=== PATIENT | female | born 1980 | race Caucasian/White ===

== ENCOUNTER → 2016-10-22 | Outpatient (CLI) | payer SELFPAY ==
--- NOTE | 2016-10-22 11:07 | USB ---
Reason for exam: additional evaluation requested from abnormal screening. History: Family history of breast cancer in paternal grandmother. Took hormonal contraceptives for 6 years. Indicated problem(s): palpable abnormality in the right breast. Physical Findings: Nurse Summary: bilateral mastecomy with silicone implants. No palpable abnormality noted (nurse ts). US Breast RT Right breast ultrasound includes all four quadrants, the retroareolar region and axilla. Finding demonstrate no cystic or solid lesion seen. Implant is intact. These results were verbally communicated with the patient and result sheet given to the patient on 10/22/16. ASSESSMENT: Negative, BI-RAD 1 RECOMMENDATION: Clinical management of the right breast. Manage patient on a clinical basis.
== END | disposition home or self-care (01) ==
LOC: RADUSWWP 09:07
PROVIDERS: ATTEND Surgery
DX: Z85.3 Personal history of malignant neoplasm of breast (principal)

== ENCOUNTER 2017-06-12 18:50 | Emergency (ER) | payer OTHER ==
[2017-06-12 19:08] VITALS: RESP 18; TEMP 98
[2017-06-12] MEDS ORDERED: diphenhydrAMINE 50 MG/ML 1 ML VIAL IVP STA (19:33)
[2017-06-12] MEDS ORDERED: METOCLOPRAMIDE 5 MG/ML 2 ML VIAL IVP STA (19:33)
[2017-06-12] MEDS ORDERED: SODIUM CHLORIDE 0.9% 1,000 ML IV ONE (19:33)
--- NOTE | 2017-06-12 19:43 | ED ---
General Adult HPI - General Chief complaint: Nausea/Vomiting/Diarrhea Stated complaint: Abdominal pain 17 weeks Time Seen by Provider: 06/12/17 19:17 Source: patient Mode of arrival: ambulatory Limitations: no limitations - History of Present Illness Initial comments: Patient is a 36-year-old female, 18 weeks presents with a chief complaint of nausea vomiting and diarrhea that started earlier today. Patient has had one episode of diarrhea. The patient states that she is not too many times to count. She states that she is trying to drink water but cannot keep it down. She cannot identify any inciting incidences other than eating [employer] '[employer] breakfast this morning. There are no aggravating or alleviating factors. The patient also complains of cramping lower abdominal pain. The patient denies any vaginal discharge or bleeding. 9:10 PM Lab evaluation of this patient is unremarkable. Bedside ultrasound shows a single, mobile intrauterine gestation with a heart rate of 197 bpm. On reevaluation, patient states she is feeling better. She'll be prescribed Reglan for nausea control on an outpatient basis. She is instructed to follow up with primary care and [facility]. She was given exquisite signs and symptoms that should prompt return visit to the emergency department. - Related Data Home Medications Medication Instructions Recorded Confirmed Pnv No.95/Ferrous Fum/Folic AC 1 tab PO HS 06/12/17 06/12/17 [ Multivitamin Tablet] Previous Rx's Medication Instructions Recorded Metoclopramide [Reglan] 10 mg PO TID PRN #20 tab 06/12/17 Allergies Allergy/AdvReac Type Severity Reaction Status Date / Time No Known Allergies Allergy Verified 06/12/17 19:26 Review of Systems ROS Statement: Those systems with pertinent positive or pertinent negative responses have been documented in the HPI. ROS Other: All systems not noted in ROS Statement are negative. Constitutional: Denies: fever Respiratory: Denies: cough, dyspnea Cardiovascular: Denies: chest pain Gastrointestinal: Reports: abdominal pain, nausea, vomiting, diarrhea Genitourinary: Denies: dysuria Musculoskeletal: Denies: back pain Skin: Denies: rash Neurological: Denies: headache Past Medical History Past Medical History: Cancer History of Any Multi-Drug Resistant Organisms: None Reported Additional Past Surgical History / Comment(s): penny mastectomy, D&C Past Psychological History: No Psychological Hx Reported Smoking Status: Light tobacco smoker Past Alcohol Use History: None Reported Past Drug Use History: None Reported General Exam Limitations: no limitations General appearance: alert, in no apparent distress Head exam: Present: atraumatic, normocephalic ENT exam: Present: mucous membranes moist Respiratory exam: Present: normal lung sounds bilaterally Cardiovascular Exam: Present: regular rate, normal rhythm GI/Abdominal exam: Present: soft, tenderness. Absent: distended Rectal exam: Present: deferred Neurological exam: Present: alert, oriented X3 Psychiatric exam: Present: normal affect, normal mood Skin exam: Present: warm, dry, intact Course Vital Signs 06/12/17 19:03 Temperature 98.0 F Pulse Rate 75 Respiratory 18 Rate Blood Pressure 112/52 O2 Sat by Pulse 100 Oximetry Medical Decision Making - Medical Decision Making Patient presents with a chief complaint of nausea vomiting and diarrhea since today. She is 18 weeks . She will be given Reglan, Benadryl, and IV fluids. Basic labs were sent, will perform bedside ultrasound this patient has a formal ultrasound on Saturday with her OB. - Lab Data Result diagrams: 06/12/17 20:08 06/12/17 20:08 Lab Results 06/12/17 06/12/17 Range/Units 20:08 20:08 WBC 17.1 H (3.8-10.6) k/uL RBC 4.02 (3.80-5.40) m/uL Hgb 12.9 (11.4-16.0) gm/dL Hct 38.8 (34.0-46.0) % MCV 96.6 (80.0-100.0) fL MCH 32.1 (25.0-35.0) pg MCHC 33.2 (31.0-37.0) g/dL RDW 14.1 (11.5-15.5) % Plt Count 202 (150-450) k/uL Neutrophils % 93 % Lymphocytes % 3 % Monocytes % 3 % Eosinophils % 1 % Basophils % 0 % Neutrophils # 15.9 H (1.3-7.7) k/uL Lymphocytes # 0.5 L (1.0-4.8) k/uL Monocytes # 0.5 (0-1.0) k/uL Eosinophils # 0.2 (0-0.7) k/uL Basophils # 0.0 (0-0.2) k/uL Sodium 135 L (137-145) mmol/L Potassium 4.2 (3.5-5.1) mmol/L Chloride 106 (98-107) mmol/L Carbon Dioxide 21 L (22-30) mmol/L Anion Gap 8 mmol/L BUN 16 (7-17) mg/dL Creatinine 0.69 (0.52-1.04) mg/dL Est GFR (MDRD) Af Amer >60 (>60 ml/min/1.73 sqM) Est GFR (MDRD) Non-Af >60 (>60 ml/min/1.73 sqM) Glucose 117 H (74-99) mg/dL Calcium 9.1 (8.4-10.2) mg/dL Total Bilirubin 0.3 (0.2-1.3) mg/dL AST 23 (14-36) U/L ALT 38 (9-52) U/L Alkaline Phosphatase 65 (38-126) U/L Total Protein 6.8 (6.3-8.2) g/dL Albumin 3.7 (3.5-5.0) g/dL Lipase 42 (23-300) U/L Disposition Clinical Impression: Nausea and vomiting Disposition: HOME SELF-CARE Condition: Good Instructions: Acute Nausea and Vomiting (ED) Referrals: None,Stated [Primary Care Provider] - 1-2 days Paulina Vick MD [STAFF PHYSICIAN] - 1-2 days
[2017-06-12 20:28] LABS: Basophils % (A) 0 %; CH 32.4; CHCM 33.8; Eosinophils # (A) 0.2 k/uL (0-0.7); Eosinophils % (A) 1 %; HCT 38.8 % (34.0-46.0); HDW 2.53; HGB 12.9 gm/dL (11.4-16.0); Luc # (Auto) 0.06; Luc % (Auto) 0; Lymphocytes # (A) 0.5 k/uL (1.0-4.8); Lymphocytes % (A) 3 %; MCH 32.1 pg (25.0-35.0); MCHC 33.2 g/dL (31.0-37.0); MCV 96.6 fL (80.0-100.0); Mean Platelet Volume 7.1; Monocytes # (A) 0.5 k/uL (0-1.0); Monocytes % (A) 3 %; Neutrophils # (A) 15.9 k/uL (1.3-7.7); Neutrophils % (A) 93 %; RBC 4.02 m/uL (3.80-5.40); RDW 14.1 % (11.5-15.5); WBC 17.1 k/uL (3.8-10.6); WBC (Perox) 17.65
[2017-06-12 20:45] LABS: ALT 38 U/L (9-52); AST 23 U/L (14-36); Alkaline Phosphatase 65 U/L (38-126); Anion Gap 8 mmol/L; Blood Urea Nitrogen 16 mg/dL (7-17); Calcium 9.1 mg/dL (8.4-10.2); Carbon Dioxide 21 mmol/L (22-30); Chloride 106 mmol/L (98-107); Glucose 117 mg/dL (74-99); Non-African American GFR(MDRD) >60 (>60 ml/min/1.73 sqM); Potassium 4.2 mmol/L (3.5-5.1); Sodium 135 mmol/L (137-145); Total Bilirubin 0.3 mg/dL (0.2-1.3); Total Protein 6.8 g/dL (6.3-8.2)
[2017-06-12 21:37] VITALS: BP 123/72; PULSE 92
== END 2017-06-12 21:37 | disposition home or self-care (01) ==
LOC: EC 18:50
DX: O21.9 Vomiting of pregnancy, unspecified (principal); O26.892 Other specified pregnancy related conditions, second trimester; R19.7 Diarrhea, unspecified; R10.30 Lower abdominal pain, unspecified; O99.332 Smoking (tobacco) complicating pregnancy, second trimester; F17.200 Nicotine dependence, unspecified, uncomplicated; Z85.9 Personal history of malignant neoplasm, unspecified; Z79.899 Other long term (current) drug therapy; Z3A.18 18 weeks gestation of pregnancy
CPT/HCPCS: 99284; 96374; 96375; 96361; 36415; 80053; 83690; 85025; 84702; J1200; J2765

== ENCOUNTER 2017-07-14 20:35 | Outpatient (CLI) | payer MEDICARE, OTHER ==
[2017-07-14 21:24] VITALS: BP 120/69; PULSE 76; RESP 16; TEMP 97.7
--- NOTE | 2017-07-14 22:29 | P.MSEPDOC ---
Presenting Problems - Arrival Data Date of Arrival on Unit: 07/14/17 Time of Arrival on Unit: 20:33 Mode of Transport: Ambulatory - Complaint OB-Reason for Admission/Chief Complaint: Vaginal Bleeding Comment: scant spotting x1 Medical History - Information : 3 Para: 1 Term: 1 : 0 Abortions: Spontaneous or Elective: 1 Number of Living Children: 1 - Gestational Age Gestational Age by VANESSA (wks/days): 22 Weeks and 3 Days - History Complications: Smoker Review of Systems - Review of Systems Constitutional: No problems Breast: No problems ENT: No problems Cardiovascular: No problems Respiratory: No problems Gastrointestinal: No problems Genitourinary: No problems Musculoskeletal: No problems Neurological: No problems Skin: No problems Vital Signs - Temperature Temperature: 97.7 F Temperature Source: Temporal Artery Scan - Pulse Right Pulse Rate: 76 Pulse Assessment Method: Automatic Cuff - Respirations Respiratory Rate: 16 - Blood Pressure Right Arm Blood Pressure: 120/69 Blood Pressure Mean: 86 Blood Pressure Source: Automatic Cuff Medical Screen Scoring (Pre) - Cervical Exam Dilation: 0 cm = 0 Membranes: Intact - Uterine Contractions Frequency: N/A Duration: N/A Intensity: N/A - Maternal Vital Signs Maternal Temperature: N/A Signs of Preeclampsia: N/A - Assessment Baseline FHR: 145 - Total Score Total Score (Pre): 0 - Level of Risk Level of Risk: Low (0-5) Physician Notification (Pre) - Physician Notified Physician Notified Date: 07/14/17 Physician Notified Time: 20:49 Physician/Practitioner Notifed:: Dr Murray - Notification Comment Comment: reported on pts c/o spotting x1. reported on intercourse, no abd pain or tenderness, no other complaints or concerns. orders for SSE and vag exam. d/ c home if cervix is closed Disposition - Disposition OB Disposition: Discharge to home Discharge Date: 07/14/17 Discharge Time: 21:10 I agree with the RN Medical Screening Exam: Yes Risk & Benefit of care provided described in d/c instruction: Yes Diagnosis: 21 WEEKS GESTATION OF
== END 2017-07-14 21:10 | disposition home or self-care (01) ==
LOC: FBPOP 20:35
PROVIDERS: ATTEND Obstetrics & Gynecology
DX: O46.92 Antepartum hemorrhage, unspecified, second trimester (principal); O99.332 Smoking (tobacco) complicating pregnancy, second trimester; Z3A.21 21 weeks gestation of pregnancy
CPT/HCPCS: 99213

== ENCOUNTER 2017-11-10 20:39 | Inpatient (IN) | payer OTHER ==
[2017-11-10] MEDS ORDERED: METHYLERGONOVINE 0.2 MG/ML 1 ML AMP IM PRN (21:40)
[2017-11-10] MEDS ORDERED: CARBOPROST TROMETHAMINE 250 MCG/ML 1 ML AMP IM PRN (21:40)
[2017-11-10] MEDS ORDERED: LIDOCAINE 1% (PF) 10 MG/ML (30 ML SDV) SQ PRN (21:40)
[2017-11-10] MEDS ORDERED: TERBUTALINE 1 MG/ML VIAL SQ PRN (21:40)
[2017-11-10] MEDS ORDERED: OXYTOCIN 10 UNIT/ML 1 ML VIAL IM PRN (21:40)
[2017-11-10] MEDS ORDERED: OXYTOCIN 20 UNITS/1000 ML NS 1,000 ML IV SCH (21:45)
[2017-11-10 22:03] VITALS: BMI 25.9
[2017-11-10] MEDS: LACTATED RINGERS 1,000 ML IV SCH ×2 (22:07→22:56)
[2017-11-10 22:12] LABS: Basophils % (A) 0 %; Eosinophils # (A) 0.2 k/uL (0-0.7); Eosinophils % (A) 1 %; HCT 35.8 % (34.0-46.0); HGB 12.6 gm/dL (11.4-16.0); Lymphocytes # (A) 2.6 k/uL (1.0-4.8); Lymphocytes % (A) 20 %; MCH 32.9 pg (25.0-35.0); MCHC 35.2 g/dL (31.0-37.0); MCV 93.4 fL (80.0-100.0); Mean Platelet Volume 7.7; Monocytes # (A) 0.7 k/uL (0-1.0); Monocytes % (A) 6 %; Neutrophils # (A) 9.1 k/uL (1.3-7.7); Neutrophils % (A) 71 %; Platelet Count 224 k/uL (150-450); RBC 3.84 m/uL (3.80-5.40); RDW 13.4 % (11.5-15.5); WBC 12.8 k/uL (3.8-10.6)
[2017-11-10] MEDS ORDERED: fentaNYL (PF) 50 MCG/ML 5 ML AMP ONE (22:50)
[2017-11-10] MEDS ORDERED: BUPIVACAINE (PF) 0.25% 30 ML VIAL ONE (22:50)
[2017-11-10] MEDS ORDERED: SODIUM CHLORIDE 0.9% 100 ML BAG ONE (22:50)
[2017-11-10] MEDS ORDERED: BUPIVACAINE (PF) 0.5% 12.5 ML, fentaNYL (PF) 200 MCG in SODIUM CHLORIDE 0.9% 83.5 ML EPIDURAL ONE (23:13)
--- NOTE | 2017-11-11 01:33 | P.MSEPDOC ---
Presenting Problems - Arrival Data Date of Arrival on Unit: 11/10/17 Time of Arrival on Unit: 20:39 Mode of Transport: Ambulatory - Complaint OB-Reason for Admission/Chief Complaint: Rule Out SROM Comment: Pt complains of SROM at 1830 Medical History - Information : 3 Para: 1 Term: 1 : 0 Abortions: Spontaneous or Elective: 1 Number of Living Children: 1 - Gestational Age Gestational Age by VANESSA (wks/days): 39 Weeks and 3 Days - History Complications: Smoker Review of Systems - Review of Systems Constitutional: No problems Breast: No problems ENT: No problems Cardiovascular: No problems Respiratory: No problems Gastrointestinal: No problems Genitourinary: No problems Musculoskeletal: No problems Neurological: No problems Skin: No problems Vital Signs - Temperature Temperature: 97.9 F Temperature Source: Temporal Artery Scan - Pulse Pulse Oximetery Pulse Rate: 100 Pulse Assessment Method: Automatic Cuff - Respirations Respiratory Rate: 15 Oxygen Delivery Method: Room Air - Blood Pressure Right Arm Blood Pressure: 136/82 Blood Pressure Mean: 100 Blood Pressure Source: Automatic Cuff Medical Screen Scoring (Pre) - Cervical Exam Dilation: 1-3 cm = 1 Effacement: More than 50% = 2 Membranes: Ruptured = 3 - Uterine Contractions Frequency: N/A Duration: N/A Intensity: N/A - Maternal Vital Signs Maternal Temperature: N/A Maternal Blood Pressure: N/A Signs of Preeclampsia: N/A Maternal Respirations: N/A - Pain Assessment Pain Location and Character: Abdomen Pain Scale Used: Numeric (1 - 10) Pain Intensity: 3 Pain Management Goal: 2 Pain Description: *Acute, Cramping Pain Radiation Location: none Pain Frequency: Intermittent Pain Duration: 1 Pain Duration Units: Hours Pain Behavior: None Exhibited Pain Aggravating Factors: Contractions - Maternal Trauma Maternal Trauma: N/A - Assessment Baseline FHR: 135 Heart Rate - NICHD Category: Category I (Normal) = 0 NST: Reactive Position: N/A Station: N/A - Total Score Total Score (Pre): 6 - Level of Risk Level of Risk: Medium (6-9) Physician Notification (Pre) - Physician Notified Physician Notified Date: 11/10/17 Physician Notified Time: 20:49 Physician/Practitioner Notifed:: Dr Murray New Order Received: Yes Medical Screen Scoring (Post) - Cervical Exam Dilation: 1-3 cm = 1 Effacement: More than 50% = 2 Membranes: Ruptured = 3 - Uterine Contractions Frequency: > or = 36 weeks =2 Duration: > 40 seconds = 2 Intensity: N/A - Maternal Vital Signs Maternal Temperature: N/A Maternal Blood Pressure: N/A Signs of Preeclampsia: N/A Maternal Respirations: N/A - Pain Assessment Pain Scale Used: Numeric (1 - 10) Pain Intensity: 3 Pain Management Goal: 2 Pain Description: *Acute Pain Radiation Location: none Pain Frequency: Intermittent Pain Duration: 30 Pain Duration Units: Minutes Pain Behavior: Guarding, Vocalization Pain Aggravating Factors: Contractions - Maternal Trauma Maternal Trauma: N/A - Total Score Total Score (Post): 10 - Post Treatment Level of Risk Post Treatment Level of Risk: High (10+) Physician Notification (Post) - Physician Notified Physician Notified Date: 11/10/17 Physician Notified Time: 21:39 Physician/Practitioner Notified:: Dr. Murray Spoke With: Dr. Murray New Order Received: Yes - Notification Comment Comment: admit pt for labo Disposition - Disposition OB Disposition: Admit, LDRP Suite I agree with the RN Medical Screening Exam: Yes Risk & Benefit of care provided described in d/c instruction: Yes Diagnosis: ENCOUNTER FOR FULL-TERM UNCOMPLICATED DELIVERY
--- NOTE | 2017-11-11 01:38 | P.HPOB ---
History of Present Illness H&P Date: 11/10/17 Chief Complaint: Labor 37 year old presents at 39 weeks 3 days with spontaneous rupture of membranes at 1830. Her cervix was 3 cm dilated, 80% effaced, -2 station. She is garret every 3-5 minutes. heart tones 130-135 with moderate variability and reactive. Review of Systems All systems: negative Constitutional: Denies chills, Denies fever Eyes: denies blurred vision, denies pain Ears, nose, mouth and throat: Denies headache, Denies sore throat Cardiovascular: Denies chest pain, Denies shortness of breath Respiratory: Denies cough Gastrointestinal: Denies abdominal pain, Denies diarrhea, Denies nausea, Denies vomiting Genitourinary: Denies dysuria, Denies hematuria Musculoskeletal: Denies myalgias Integumentary: Denies pruritus, Denies rash Neurological: Denies numbness, Denies weakness Psychiatric: Denies anxiety, Denies depression Endocrine: Denies fatigue, Denies weight change Past Medical History Past Medical History: Cancer (Stage 0 breast cancer with bilateral mastectomy) Additional Past Medical History / Comment(s): Obstetric history: First was a miscarriage with a D&C, second was a vaginal delivery at 39 weeks, this is her third she's had care with Dr. Lucas since 9 weeks gestation. Blood type A-, rubella immune, RPR nonreactive , placed B-, HIV negative, toxoplasmosis negative. GBS negative. History of Any Multi-Drug Resistant Organisms: None Reported Additional Past Surgical History / Comment(s): penny mastectomy, D&C biopsy and scar revisions Past Anesthesia/Blood Transfusion Reactions: No Reported Reaction Past Psychological History: No Psychological Hx Reported Smoking Status: Current every day smoker Past Alcohol Use History: None Reported Past Drug Use History: None Reported - Past Family History Father Family Medical History: Coronary Artery Disease (CAD), Hypertension Medications and Allergies Home Medications Medication Instructions Recorded Confirmed Type Pnv No.95/Ferrous Fum/Folic AC 1 tab PO HS 06/12/17 11/10/17 History [ Multivitamin Tablet] Allergies Allergy/AdvReac Type Severity Reaction Status Date / Time No Known Allergies Allergy Verified 11/10/17 20:42 Exam Osteopathic Statement: *. No significant issues noted on an osteopathic structural exam other than those noted in the History and Physical/Consult. - Vital Signs Vital signs: Vital Signs Temp Pulse Resp BP 11/11/17 01:33 97.9 F 100 15 136/82 11/10/17 20:45 97.9 F 100 15 136/82 Intake and Output 11/10/17 11/10/17 11/11/17 14:59 22:59 06:59 Other: Weight 77.564 kg Heart: Regular rate and rhythm Lungs: Clear to auscultation bilaterally Abdomen: Soft, nontender Extremities: Negative Homans sign Results Result Diagrams: 11/10/17 21:55 Abnormal Lab Results - Last 24 Hours (Table) 11/10/17 Range/Units 21:55 WBC 12.8 H (3.8-10.6) k/uL Neutrophils # 9.1 H (1.3-7.7) k/uL Assessment and Plan (1) Spontaneous rupture of membranes Current Visit: Yes Status: Acute Code(s): [id number] - SNOMED Code(s): 094136715 Plan: 1. Admit to family place 2. Pitocin augmentation 3. Epidural for pain management 4. Anticipate normal vaginal delivery
--- NOTE | 2017-11-11 01:42 | P.PROBDLV ---
Vaginal Delivery Note - . Vaginal Delivery Note: 37-year-old presents at 39 weeks 3 days with spontaneous rupture membranes at 1830. Her cervix is 3 cm dilated, 80% effaced, -2 station. She is garret every 3-5 minutes. heart tones 130-135 with moderate variability and reactive. Pitocin augmentation was started and epidural was given for pain management. Her cervix was completely dilated at 00 50. She pushed, and delivered a viable male over intact perineum under epidural anesthesia at 1:25 AM. Head delivered OA, anterior shoulder delivered gentle downward traction followed by posterior shoulder and rest of body. Nose and mouth bulb suctioned, cord clamped and cut, infant placed mother's abdomen. Apgars 8, 9, weight 6 lbs. 10 oz. Placenta delivered spontaneously, intact with three-vessel cord at 1:28 AM. Vagina, cervix, and perineum were inspected. No lacerations noted. Estimated blood loss 150 mL. Mother and baby in stable condition.
[2017-11-11] MEDS ORDERED: SIMETHICONE 80 MG CHEWABLE PO PRN (07:19)
[2017-11-11] MEDS ORDERED: BENZOCAINE/MENTHOL SPRAY 1 GM/SPRAY AEROSOL TOPICAL PRN (07:19)
[2017-11-11] MEDS ORDERED: diphenhydrAMINE 50 MG/ML 1 ML VIAL IVP PRN ×2 (07:19)
[2017-11-11] MEDS ORDERED: LANOLIN CREAM 5 GM TUBE TOPICAL PRN (07:19)
[2017-11-11] MEDS ORDERED: HYDROCORTISONE 2.5% RECTAL CREAM 30 GM TUBE RECTAL PRN (07:19)
[2017-11-11] MEDS ORDERED: ACETAMINOPHEN TAB 325 MG TAB PO PRN (07:19)
[2017-11-11] MEDS ORDERED: diphenhydrAMINE 50 MG CAP PO PRN (07:19)
[2017-11-11] MEDS ORDERED: diphenhydrAMINE 25 MG CAP PO PRN (07:19)
[2017-11-11] MEDS ORDERED: WITCH HAZEL 1 EACH MED..PAD TOPICAL PRN (07:19)
[2017-11-11] MEDS ORDERED: ZOLPIDEM 5 MG TAB PO PRN (07:19)
[2017-11-11] MEDS: SENNOSIDES-DOCUSATE SODIUM 1 EACH TAB PO SCH ×2 (09:26→21:11)
[2017-11-11] MEDS: IBUPROFEN 600 MG TAB PO PRN (17:23)
[2017-11-11] MEDS ORDERED: DIPH,PERTUS(ACELL)TETVAC-LF 0.5 ML VIAL IM ONE (21:10)
[2017-11-12 04:30] VITALS: BP 103/51; PULSE 70; RESP 16; TEMP 97.7
--- NOTE | 2017-11-12 06:04 | P.PNOBGVD ---
Subjective - Subjective Patient reports: Reports appetite normal, Reports voiding normally, Reports pain well controlled, Reports ambulating normally : doing well Objective - Latest Vital Signs Latest vital signs: Vital Signs Temp Pulse Resp BP 11/12/17 00:00 97.7 F 70 16 103/51 11/11/17 16:00 98.3 F 73 18 123/67 11/11/17 12:00 98.3 F 68 18 118/60 11/11/17 08:00 97.9 F 66 18 107/57 - Exam Lungs: bilateral: normal Chest: Normal S1, Normal S2 Extremities: Present: normal Abdomen: Present: normal appearance, soft Uterus: Present: normal, firm Assessment and Plan Assessment: Post day #1. She is resting without complaints. Vital signs are stable she is afebrile. Uterus is firm nontender and she has normal lochia. Patient wishes to go home. Impression normal course. Plan is to continue routine care and discharge home later today.
--- NOTE | 2017-11-12 06:06 | P.DS ---
Providers Date of admission: 11/10/17 21:22 Expected date of discharge: 11/12/17 Attending physician: Kenney Lucas Primary care physician: Kenney Lucas [facility] Course: Please see dictated H&P and delivery note per Dr. Murray on this patient's admission. Brief summary this pleasant 37-year-old 3 para 1 female 39-3 /7 weeks gestation admitted with spontaneous rupture membranes. Patient was on have a vaginal delivery viable male . Please see dictated delivery note. day 1 patient wishes to go home. Patient's felt be stable for discharge home follow up with me in 6 weeks. Procedures: Normal spontaneous vaginal delivery Patient Condition at Discharge: Good Plan - Discharge Summary New Discharge Prescriptions: New Ibuprofen [Motrin] 600 mg PO Q6HR PRN #40 tab PRN Reason: Mild Pain Or Fever >= 100.5 No Action Pnv No.95/Ferrous Fum/Folic AC [ Multivitamin Tablet] 1 tab PO HS Discharge Medication List Pnv No.95/Ferrous Fum/Folic AC [ Multivitamin Tablet] 1 tab PO HS [History] Ibuprofen [Motrin] 600 mg PO Q6HR PRN #40 tab 11/12/17 [Rx] Follow up Appointment(s)/Referral(s): Kenney Lucas MD [Primary Care Provider] - 12/23/17 8:45 am Patient Instructions/Handouts: Vaginal Delivery (DC) Activity/Diet/Wound Care/Special Instructions: No intercourse or anything per vagina for 6 weeks. Please call if any fever, chills, excessive vaginal bleeding, and/or abdominal pain. Discharge Disposition: HOME SELF-CARE
[2017-11-12] MEDS: IBUPROFEN 600 MG TAB PO PRN (06:33)
== END 2017-11-12 08:15 | disposition home or self-care (01) | DRG 775 ==
LOC: FBPOP 20:39 → 4FBP 21:22
PROVIDERS: ADMIT Obstetrics & Gynecology; ATTEND Obstetrics & Gynecology
PROC: 10E0XZZ Delivery of Products of Conception, External Approach (ICD-10-PCS; principal; 2017-11-11)
PROC: 00HU33Z Insertion of Infusion Device into Spinal Canal, Percutaneous Approach (ICD-10-PCS; 2017-11-11)
PROC: 3E0R3BZ Introduction of Anesthetic Agent into Spinal Canal, Percutaneous Approach (ICD-10-PCS; 2017-11-11)
DX: O99.334 Smoking (tobacco) complicating childbirth (principal); Z37.0 Single live birth; F17.200 Nicotine dependence, unspecified, uncomplicated; Z3A.39 39 weeks gestation of pregnancy; Z85.3 Personal history of malignant neoplasm of breast; Z90.13 Acquired absence of bilateral breasts and nipples; Z82.49 Family history of ischemic heart disease and other diseases of the circulatory system
CPT/HCPCS: 84112; 85025; 86850; 86870; 86880; 86900; 86901; 86902; 88307; 90471; 90715; 99213

== ENCOUNTER 2018-04-06 21:25 | Observation (INO) | payer OTHER ==
[2018-04-06 21:31] VITALS: TEMP 98
[2018-04-06] MEDS ORDERED: SODIUM CHLORIDE 0.9% 1,000 ML IV STA (21:45)
--- NOTE | 2018-04-06 21:56 | ED ---
General Adult HPI - General Source: patient Mode of arrival: wheelchair Limitations: no limitations <Martha Mon - Last Filed: 04/06/18 23:37> <Echo Miramontes - Last Filed: 04/07/18 03:03> - General Chief complaint: Seizure Stated complaint: seizure Time Seen by Provider: 04/06/18 21:38 - History of Present Illness Initial comments: 37 year-old female patient with past medical history significant for breast cancer status post bilateral mastectomy, remission for 5 years, presents to the emergency department today for evaluation after experiencing what her believes to be a seizure. States around 2009 this evening patient started complaining of abdominal pain radiating into her back. States that she then became unconscious stiffened all limbs, turned her head to the left and had mild shaking. reports this lasted approximately 30-40 seconds before she went completely unconscious and still. States that while he was on the phone with EMS she became alert, but was acting confused, was yelling "yes" to his responses to EMS personnel on the phone. States she did have a vomiting episode after the "seizure". Patient did lose bladder control, no loss of bowel control. Patient states that she is still experiencing "central" abdominal pain , she is still having mid back pain that radiates across her back. States that she was feeling fine throughout the day today and was quite busy. She denies any headache, dizziness, blurred vision, or double vision. She denies any nausea , vomiting, constipation, or diarrhea. His any fevers or chills. No history of seizures. Patient denies any recent rash, shortness breath, chest pain, numbness, tingling, dizziness, weakness, hematuria, dysuria, urinary urgency, urinary frequency, headache, visual changes, or any other complaints. (Martha Mon) - Related Data Home Medications Medication Instructions Recorded Confirmed Pnv No.95/Ferrous Fum/Folic AC 1 tab PO HS 06/12/17 11/10/17 [ Multivitamin Tablet] Previous Rx's Medication Instructions Recorded Ibuprofen [Motrin] 600 mg PO Q6HR PRN #40 tab 11/12/17 Allergies Allergy/AdvReac Type Severity Reaction Status Date / Time No Known Allergies Allergy Verified 04/06/18 21:31 Review of Systems ROS Other: All systems not noted in ROS Statement are negative. <Martha Mon M - Last Filed: 04/06/18 23:37> ROS Other: All systems not noted in ROS Statement are negative. <Echo Miramontes - Last Filed: 04/07/18 03:03> ROS Statement: Those systems with pertinent positive or pertinent negative responses have been documented in the HPI. Past Medical History Past Medical History: Cancer Additional Past Medical History / Comment(s): Obstetric history: First was a miscarriage with a D&C, second was a vaginal delivery at 39 weeks, this is her third she's had care with Dr. Lucas since 9 weeks gestation. Blood type A-, rubella immune, RPR nonreactive , placed B-, HIV negative, toxoplasmosis negative. GBS negative. History of Any Multi-Drug Resistant Organisms: None Reported Additional Past Surgical History / Comment(s): penny mastectomy, D&C biopsy and scar revisions Past Anesthesia/Blood Transfusion Reactions: No Reported Reaction Past Psychological History: No Psychological Hx Reported Smoking Status: Current every day smoker Past Alcohol Use History: None Reported Past Drug Use History: None Reported - Past Family History Father Family Medical History: Coronary Artery Disease (CAD), Hypertension <Martha Mon - Last Filed: 04/06/18 23:37> General Exam Limitations: no limitations General appearance: alert, in no apparent distress, other (This is a well- developed, well-nourished adult female patient in no acute distress. Vital signs upon presentation are temperature 98.0F, pulse 71, respirations 16, blood pressure 95/51, pulse ox 97% on room air.) Eye exam: Present: normal appearance, PERRL, EOMI. Absent: scleral icterus, conjunctival injection, nystagmus, periorbital swelling ENT exam: Present: normal exam, normal oropharynx, mucous membranes moist Respiratory exam: Present: normal lung sounds bilaterally. Absent: respiratory distress, wheezes, rales, rhonchi, stridor Cardiovascular Exam: Present: regular rate, normal rhythm, normal heart sounds. Absent: systolic murmur, diastolic murmur, rubs, gallop, clicks GI/Abdominal exam: Present: soft, normal bowel sounds. Absent: distended, tenderness, guarding, rebound, rigid Back exam: Present: normal inspection. Absent: tenderness Neurological exam: Present: alert, oriented X3, CN II-XII intact Psychiatric exam: Present: normal affect, normal mood Skin exam: Present: warm, dry, intact, normal color. Absent: rash <Martha Mon - Last Filed: 04/06/18 23:37> Vital Signs 04/06/18 04/06/18 04/06/18 21:27 22:02 22:30 Temperature 98 F Pulse Rate 71 59 L 61 Respiratory 16 16 16 Rate Blood Pressure 95/51 99/75 99/75 O2 Sat by Pulse 97 100 100 Oximetry EKG Findings - EKG Comments: EKG Findings:: EKG obtained at 2207 shows normal sinus rhythm with a ventricular rate of 63, GA interval 178, QR jew 100, QTC 444, QTC 454. No evidence of ST elevation or depression. <aMrtha Mon - Last Filed: 04/06/18 23:37> Medical Decision Making - Lab Data Result diagrams: 04/06/18 21:59 04/06/18 21:59 - Radiology Data Radiology results: report reviewed, image reviewed <Martha Mon - Last Filed: 04/06/18 23:37> - Lab Data Result diagrams: 04/06/18 21:59 04/06/18 21:59 <Echo Miramontes - Last Filed: 04/07/18 03:03> - Medical Decision Making 37 year-old female patient presented to the emergency department today after having an episode that her describes as a seizure. Physical examination at the time of arrival is unremarkable. Patient was alert and oriented. Neurologically intact. describes an episode where she became unresponsive, slumped to the side, head turned to the left, and all of her extremities stiffened. States this episode lasted approximately 30-40 seconds. She did have an episode of vomiting and did lose bladder control. Episode was preceded by sudden onset of central abdominal pain with radiation to the back. Patient has no history of seizures, no history of cardiac abnormalities. Labs reviewed and are unremarkable, lactic acid was negative. EKG showed normal sinus rhythm. Brain CT was negative for any acute abnormalities. Patient will be admitted for further evaluation of new onset seizure versus syncope. She'll be admitted with telemetry monitoring and seizure precautions. Neurology will be consulted. (Martha Mon I was available for consultation in the emergency department. The history and physical exam were done by the midlevel provider. I was consulted for this patient's care. I reviewed the case with the midlevel provider and based on their presentation of the patient, I agree with the assessment, medical decision making and plan of care as documented. (Echo Miramontes) - Lab Data Lab Results 04/06/18 04/06/18 04/06/18 Range/Units 21:59 21:59 21:59 WBC 10.0 (3.8-10.6) k/uL RBC 4.43 (3.80-5.40) m/uL Hgb 14.0 (11.4-16.0) gm/dL Hct 41.5 (34.0-46.0) % MCV 93.7 (80.0-100.0) fL MCH 31.7 (25.0-35.0) pg MCHC 33.8 (31.0-37.0) g/dL RDW 12.6 (11.5-15.5) % Plt Count 233 (150-450) k/uL Neutrophils % 72 % Lymphocytes % 20 % Monocytes % 4 % Eosinophils % 2 % Basophils % 0 % Neutrophils # 7.2 (1.3-7.7) k/uL Lymphocytes # 2.0 (1.0-4.8) k/uL Monocytes # 0.4 (0-1.0) k/uL Eosinophils # 0.2 (0-0.7) k/uL Basophils # 0.0 (0-0.2) k/uL PT (9.0-12.0) sec INR (<1.2) APTT (22.0-30.0) sec Sodium 139 (137-145) mmol/L Potassium 4.1 (3.5-5.1) mmol/L Chloride 100 (98-107) mmol/L Carbon Dioxide 28 (22-30) mmol/L Anion Gap 11 mmol/L BUN 13 (7-17) mg/dL Creatinine 0.61 (0.52-1.04) mg/dL Est GFR (CKD-EPI)AfAm >90 (>60 ml/min/1.73 sqM) Est GFR (CKD-EPI)NonAf >90 (>60 ml/min/1.73 sqM) Glucose 105 H (74-99) mg/dL Plasma Lactic Acid Brad (0.7-2.0) mmol/L Calcium 9.5 (8.4-10.2) mg/dL Total Bilirubin 0.3 (0.2-1.3) mg/dL AST 63 H (14-36) U/L ALT 49 (9-52) U/L Alkaline Phosphatase 49 (38-126) U/L Total Creatine Kinase (30-135) U/L CK-MB (CK-2) (0.0-2.4) ng/mL CK-MB (CK-2) Rel Index Troponin I (0.000-0.034) ng/mL Total Protein 7.4 (6.3-8.2) g/dL Albumin 4.4 (3.5-5.0) g/dL Amylase 50 (30-110) U/L Lipase 112 (23-300) U/L Urine Color Yellow Urine Appearance Turbid H (Clear) Urine pH 7.5 (5.0-8.0) Ur Specific [place] 1.018 (1.001-1.035) Urine Protein Trace H (Negative) Urine Glucose (UA) Negative (Negative) Urine Ketones 1+ H (Negative) Urine Blood Negative (Negative) Urine Nitrite Negative (Negative) Urine Bilirubin Negative (Negative) Urine Urobilinogen 2.0 (<2.0) mg/dL Ur Leukocyte Esterase Negative (Negative) Ur Squamous Epith Cells 1 (0-4) /hpf Amorphous Sediment Rare H (None) /hpf Urine Mucus Occasional H (None) /hpf Urine HCG, Qual (Not Detectd) Urine Opiates Screen Not Detected (NotDetected) Ur Oxycodone Screen Not Detected (NotDetected) Urine Methadone Screen Not Detected (NotDetected) Ur Propoxyphene Screen Not Detected (NotDetected) Ur Barbiturates Screen Not Detected (NotDetected) U Tricyclic Antidepress Not Detected (NotDetected) Ur Phencyclidine Scrn Not Detected (NotDetected) Ur Amphetamines Screen Not Detected (NotDetected) U Methamphetamines Scrn Not Detected (NotDetected) U Benzodiazepines Scrn Not Detected (NotDetected) Urine Cocaine Screen Not Detected (NotDetected) U Marijuana (THC) Screen Not Detected (NotDetected) 04/06/18 04/06/18 04/06/18 Range/Units 21:59 21:59 21:59 WBC (3.8-10.6) k/uL RBC (3.80-5.40) m/uL Hgb (11.4-16.0) gm/dL Hct (34.0-46.0) % MCV (80.0-100.0) fL MCH (25.0-35.0) pg MCHC (31.0-37.0) g/dL RDW (11.5-15.5) % Plt Count (150-450) k/uL Neutrophils % % Lymphocytes % % Monocytes % % Eosinophils % % Basophils % % Neutrophils # (1.3-7.7) k/uL Lymphocytes # (1.0-4.8) k/uL Monocytes # (0-1.0) k/uL Eosinophils # (0-0.7) k/uL Basophils # (0-0.2) k/uL PT 10.5 (9.0-12.0) sec INR 1.1 (<1.2) APTT 24.0 (22.0-30.0) sec Sodium (137-145) mmol/L Potassium (3.5-5.1) mmol/L Chloride (98-107) mmol/L Carbon Dioxide (22-30) mmol/L Anion Gap mmol/L BUN (7-17) mg/dL Creatinine (0.52-1.04) mg/dL Est GFR (CKD-EPI)AfAm (>60 ml/min/1.73 sqM) Est GFR (CKD-EPI)NonAf (>60 ml/min/1.73 sqM) Glucose (74-99) mg/dL Plasma Lactic Acid Brad (0.7-2.0) mmol/L Calcium (8.4-10.2) mg/dL Total Bilirubin (0.2-1.3) mg/dL AST (14-36) U/L ALT (9-52) U/L Alkaline Phosphatase (38-126) U/L Total Creatine Kinase 134 (30-135) U/L CK-MB (CK-2) 2.0 (0.0-2.4) ng/mL CK-MB (CK-2) Rel Index 1.5 Troponin I <0.012 (0.000-0.034) ng/mL Total Protein (6.3-8.2) g/dL Albumin (3.5-5.0) g/dL Amylase (30-110) U/L Lipase (23-300) U/L Urine Color Urine Appearance (Clear) Urine pH (5.0-8.0) Ur Specific [place] (1.001-1.035) Urine Protein (Negative) Urine Glucose (UA) (Negative) Urine Ketones (Negative) Urine Blood (Negative) Urine Nitrite (Negative) Urine Bilirubin (Negative) Urine Urobilinogen (<2.0) mg/dL Ur Leukocyte Esterase (Negative) Ur Squamous Epith Cells (0-4) /hpf Amorphous Sediment (None) /hpf Urine Mucus (None) /hpf Urine HCG, Qual Not Detected (Not Detectd) Urine Opiates Screen (NotDetected) Ur Oxycodone Screen (NotDetected) Urine Methadone Screen (NotDetected) Ur Propoxyphene Screen (NotDetected) Ur Barbiturates Screen (NotDetected) U Tricyclic Antidepress (NotDetected) Ur Phencyclidine Scrn (NotDetected) Ur Amphetamines Screen (NotDetected) U Methamphetamines Scrn (NotDetected) U Benzodiazepines Scrn (NotDetected) Urine Cocaine Screen (NotDetected) U Marijuana (THC) Screen (NotDetected) 04/06/18 Range/Units 21:59 WBC (3.8-10.6) k/uL RBC (3.80-5.40) m/uL Hgb (11.4-16.0) gm/dL Hct (34.0-46.0) % MCV (80.0-100.0) fL MCH (25.0-35.0) pg MCHC (31.0-37.0) g/dL RDW (11.5-15.5) % Plt Count (150-450) k/uL Neutrophils % % Lymphocytes % % Monocytes % % Eosinophils % % Basophils % % Neutrophils # (1.3-7.7) k/uL Lymphocytes # (1.0-4.8) k/uL Monocytes # (0-1.0) k/uL Eosinophils # (0-0.7) k/uL Basophils # (0-0.2) k/uL PT (9.0-12.0) sec INR (<1.2) APTT (22.0-30.0) sec Sodium (137-145) mmol/L Potassium (3.5-5.1) mmol/L Chloride (98-107) mmol/L Carbon Dioxide (22-30) mmol/L Anion Gap mmol/L BUN (7-17) mg/dL Creatinine (0.52-1.04) mg/dL Est GFR (CKD-EPI)AfAm (>60 ml/min/1.73 sqM) Est GFR (CKD-EPI)NonAf (>60 ml/min/1.73 sqM) Glucose (74-99) mg/dL Plasma Lactic Acid Brad 1.4 (0.7-2.0) mmol/L Calcium (8.4-10.2) mg/dL Total Bilirubin (0.2-1.3) mg/dL AST (14-36) U/L ALT (9-52) U/L Alkaline Phosphatase (38-126) U/L Total Creatine Kinase (30-135) U/L CK-MB (CK-2) (0.0-2.4) ng/mL CK-MB (CK-2) Rel Index Troponin I (0.000-0.034) ng/mL Total Protein (6.3-8.2) g/dL Albumin (3.5-5.0) g/dL Amylase (30-110) U/L Lipase (23-300) U/L Urine Color Urine Appearance (Clear) Urine pH (5.0-8.0) Ur Specific [place] (1.001-1.035) Urine Protein (Negative) Urine Glucose (UA) (Negative) Urine Ketones (Negative) Urine Blood (Negative) Urine Nitrite (Negative) Urine Bilirubin (Negative) Urine Urobilinogen (<2.0) mg/dL Ur Leukocyte Esterase (Negative) Ur Squamous Epith Cells (0-4) /hpf Amorphous Sediment (None) /hpf Urine Mucus (None) /hpf Urine HCG, Qual (Not Detectd) Urine Opiates Screen (NotDetected) Ur Oxycodone Screen (NotDetected) Urine Methadone Screen (NotDetected) Ur Propoxyphene Screen (NotDetected) Ur Barbiturates Screen (NotDetected) U Tricyclic Antidepress (NotDetected) Ur Phencyclidine Scrn (NotDetected) Ur Amphetamines Screen (NotDetected) U Methamphetamines Scrn (NotDetected) U Benzodiazepines Scrn (NotDetected) Urine Cocaine Screen (NotDetected) U Marijuana (THC) Screen (NotDetected) - Radiology Data Two-view x-ray of the chest was obtained. Heart mediastinum are normal. Lungs are clear. Diaphragm is normal. Bony thorax is intact. Impression by Dr. Mcknight shows normal chest. CT brain and C-spine was obtained without contrast. Report was reviewed in its entirety. Impression by Dr. Mcknight shows normal CT scan of the brain. Normal computed tomography scan of the cervical spine. (Martha Mon) Disposition Decision to Admit Reason: Admit from EC Decision Date: 04/06/18 Decision Time: 23:41 <Martha Mon - Last Filed: 04/06/18 23:37> <Echo Miramontes - Last Filed: 04/07/18 03:03> Clinical Impression: New onset seizure Narrative: Possible Syncope (Martha Mon) Disposition: ADMITTED IP TO THIS [facility] Condition: Serious
[2018-04-06 22:26] LABS: Amorphous Sediment,Urine Rare /hpf; Appearance,Urine Turbid (Clear); Bilirubin,Urine Negative (Negative); Blood,Urine Negative (Negative); Color,Urine Yellow; Glucose,Urine (UA) Negative (Negative); Ketones,Urine 1+ (Negative); Leukocyte Esterase,Urine Negative (Negative); Mucus,Urine Occasional /hpf; Nitrite,Urine Negative (Negative); PH, Urine 7.5 (5.0-8.0); Protein,Urine Trace (Negative); Specific Gravity,Urine 1.018 (1.001-1.035); Squamous Epithelial Cell,Urine 1 /hpf (0-4)
[2018-04-06 22:27] LABS: Basophils % (A) 0 %; Eosinophils # (A) 0.2 k/uL (0-0.7); Eosinophils % (A) 2 %; HCT 41.5 % (34.0-46.0); Lymphocytes % (A) 20 %; MCH 31.7 pg (25.0-35.0); MCHC 33.8 g/dL (31.0-37.0); MCV 93.7 fL (80.0-100.0); Mean Platelet Volume 6.8; Monocytes # (A) 0.4 k/uL (0-1.0); Monocytes % (A) 4 %; Neutrophils # (A) 7.2 k/uL (1.3-7.7); Neutrophils % (A) 72 %; Platelet Count 233 k/uL (150-450); RBC 4.43 m/uL (3.80-5.40); RDW 12.6 % (11.5-15.5)
[2018-04-06 22:31] LABS: INR 1.1 (<1.2); Prothrombin Time 10.5 sec (9.0-12.0)
[2018-04-06 22:34] LABS: ALT 49 U/L (9-52); AST 63 U/L (14-36); Albumin 4.4 g/dL (3.5-5.0); Alkaline Phosphatase 49 U/L (38-126); Amylase 50 U/L (30-110); Anion Gap 11 mmol/L; Blood Urea Nitrogen 13 mg/dL (7-17); Calcium 9.5 mg/dL (8.4-10.2); Carbon Dioxide 28 mmol/L (22-30); Chloride 100 mmol/L (98-107); Glucose 105 mg/dL (74-99); Lipase 112 U/L (23-300); Potassium 4.1 mmol/L (3.5-5.1); Sodium 139 mmol/L (137-145); Total Bilirubin 0.3 mg/dL (0.2-1.3); Total Protein 7.4 g/dL (6.3-8.2)
--- NOTE | 2018-04-06 22:37 | XR ---
EXAMINATION TYPE: XR chest 2V DATE OF EXAM: 04/06/2018 COMPARISON: NONE HISTORY: Chest pain TECHNIQUE: Frontal and lateral views of the chest are obtained. FINDINGS: Heart and mediastinum are normal. Lungs are clear. Diaphragm is normal. Bony thorax is int act. IMPRESSION: Normal chest.
[2018-04-06 22:41] LABS: Creatine Kinase 134 U/L (30-135)
[2018-04-06 22:46] LABS: Amphetamine Screen,Urine Not Detected (NotDetected); Barbiturate Screen,Urine Not Detected (NotDetected); Benzodiazepines Screen,Urine Not Detected (NotDetected); Cocaine Screen,Urine Not Detected (NotDetected); Methadone Screen, Urine Not Detected (NotDetected); Opiate Screen,Urine Not Detected (NotDetected); Oxycodone Screen, Urine Not Detected (NotDetected); Phencyclidine Screen,Urine Not Detected (NotDetected); Tricyclic Antidepressant,Urine Not Detected (NotDetected); Urn Cannabinoid Scrn Not Detected (NotDetected)
[2018-04-06 22:54] LABS: Troponin I <0.012 ng/mL (0.000-0.034)
--- NOTE | 2018-04-06 22:57 | CT ---
EXAMINATION TYPE: CT brain wally juares con DATE OF EXAM: 04/06/2018 COMPARISON: None HISTORY: syncope with head injury CT DLP: 924.9 mGycm Automated exposure control for dose reduction was used. TECHNIQUE: CT scan of the head and cervical spine are performed without contrast. FINDINGS: Ventricles and sulci appear normal. There is no mass effect nor midline shift. There is n o sign of intracranial hemorrhage. The calvarium appears intact. Cervical vertebra have normal spacing and alignment. Posterior elements are intact. Facet joints are intact. Skull base is intact. There is no evidence of a fracture. IMPRESSION: Normal CT scan of the brain. normal CT scan of the cervical spine.
[2018-04-06] MEDS ORDERED: NALOXONE 0.4 MG/ML 1 ML VIAL IV PRN (23:34)
[2018-04-06] MEDS ORDERED: LORazepam 2 MG/ML INJ IV PRN (23:36)
[2018-04-07 08:51] VITALS: BP 83/47; PULSE 66; RESP 18
--- NOTE | 2018-04-07 11:52 | P.HPIM ---
History of Present Illness Patient Left AMA Past Medical History Past Medical History: Cancer Additional Past Medical History / Comment(s): Obstetric history: First was a miscarriage with a D&C, second was a vaginal delivery at 39 weeks, this is her third she's had care with Dr. Lucas since 9 weeks gestation. Blood type A-, rubella immune, RPR nonreactive , placed B-, HIV negative, toxoplasmosis negative. GBS negative. History of Any Multi-Drug Resistant Organisms: None Reported Additional Past Surgical History / Comment(s): penny mastectomy, D&C biopsy and scar revisions Past Anesthesia/Blood Transfusion Reactions: No Reported Reaction Past Psychological History: No Psychological Hx Reported Smoking Status: Current every day smoker Past Alcohol Use History: None Reported Past Drug Use History: None Reported - Past Family History Father Family Medical History: Coronary Artery Disease (CAD), Hypertension Medications and Allergies Home Medications Medication Instructions Recorded Confirmed Type No Known Home Medications 04/07/18 04/07/18 History Allergies Allergy/AdvReac Type Severity Reaction Status Date / Time No Known Allergies Allergy Verified 04/07/18 08:19 Physical Exam Vitals: Vital Signs Temp Pulse Pulse Resp BP BP Pulse Ox 04/07/18 08:00 66 18 83/47 04/07/18 06:00 50 L 16 100/65 04/06/18 22:30 61 16 99/75 100 04/06/18 22:02 59 L 16 99/75 100 04/06/18 21:27 98 F 71 16 95/51 97 Intake and Output 04/06/18 04/07/18 04/07/18 22:59 06:59 14:59 Other: Weight 58.967 kg Results CBC & Chem 7: 04/06/18 21:59 04/06/18 21:59 Labs: Abnormal Lab Results - Last 24 Hours (Table) 04/06/18 04/06/18 Range/Units 21:59 21:59 Glucose 105 H (74-99) mg/dL AST 63 H (14-36) U/L Urine Appearance Turbid H (Clear) Urine Protein Trace H (Negative) Urine Ketones 1+ H (Negative) Amorphous Sediment Rare H (None) /hpf Urine Mucus Occasional H (None) /hpf
--- NOTE | 2018-04-07 11:52 | P.DS ---
Providers Date of admission: 04/06/18 23:21 Attending physician: Drew Aguilar Consults: 04/07/18 09:01 Consult Physician Routine Consulting Provider: James Lucas Consult Reason/Comments: New onset seizure vs syncope Do you want consulting provider notified?: Yes Primary care physician: Jadon Louise [facility] Course: Patient Left AMA Patient Condition at Discharge: Serious Plan - Discharge Summary New Discharge Prescriptions: No Action No Known Home Medications Discharge Medication List No Known Home Medications 04/07/18 [History] Follow up Appointment(s)/Referral(s): Jadon Louise DO [Primary Care Provider] - 1-2 days
== END 2018-04-07 11:50 | disposition left against medical advice (07) ==
LOC: EC 21:25 → 3SCARD 23:21
PROVIDERS: ADMIT Internal Medicine; ATTEND Internal Medicine
DX: R56.9 Unspecified convulsions (principal); N39.498 Other specified urinary incontinence; R10.9 Unspecified abdominal pain; M54.6 Pain in thoracic spine; R11.10 Vomiting, unspecified; F17.200 Nicotine dependence, unspecified, uncomplicated; Z85.3 Personal history of malignant neoplasm of breast; Z90.13 Acquired absence of bilateral breasts and nipples; Z82.49 Family history of ischemic heart disease and other diseases of the circulatory system; Z53.21 Procedure and treatment not carried out due to patient leaving prior to being seen by health care provider
CPT/HCPCS: 96360; 99285; 36415; 93005; 80053; 82150; 82550; 82553; 83605; 83690; 84484; 85025; 85610; 85730; 81001; 81025; 80306; 71046; 72125; 70450; G0378 ×2

== ENCOUNTER 2019-11-24 18:05 | Emergency (ER) | payer MEDICAID, OTHER ==
[2019-11-24 18:14] VITALS: BP 118/66; PULSE 71; RESP 18; TEMP 98.7
[2019-11-24] MEDS ORDERED: LIDOCAINE 1% INJ 10MG/ML (20 ML MDV) SQ ONE (18:35)
--- NOTE | 2019-11-24 19:13 | ED ---
Wound/Laceration HPI - General Chief Complaint: Wound/Laceration Stated Complaint: R Hand Lac Source: patient, RN notes reviewed, old records reviewed Mode of arrival: ambulatory Limitations: no limitations - History of Present Illness Initial Comments: Patient is a 39-year-old female presents emergency department today with a laceration of her right thumb and right second digit. Patient reports that she was washing dishes and a glass broke and cut the PIP of both. Patient states that she has full range of motion of both fingers and normal sensation distally. Vaccines are up-to-date. - Related Data Home Medications Medication Instructions Recorded Confirmed No Known Home Medications 04/07/18 04/07/18 Allergies Allergy/AdvReac Type Severity Reaction Status Date / Time No Known Allergies Allergy Verified 11/24/19 18:14 Review of Systems ROS Statement: Those systems with pertinent positive or pertinent negative responses have been documented in the HPI. ROS Other: All systems not noted in ROS Statement are negative. Past Medical History Past Medical History: Cancer Additional Past Medical History / Comment(s): breast ca in past with bilateral mastectomy History of Any Multi-Drug Resistant Organisms: None Reported Past Surgical History: Breast Surgery Additional Past Surgical History / Comment(s): penny mastectomy, D&C biopsy and scar revisions Past Anesthesia/Blood Transfusion Reactions: No Reported Reaction Past Psychological History: No Psychological Hx Reported Smoking Status: Current every day smoker Past Alcohol Use History: None Reported Past Drug Use History: None Reported - Past Family History Father Family Medical History: Coronary Artery Disease (CAD), Hypertension General Exam - General Exam Comments Initial Comments: 39-year-old female. Alert and oriented 3. No significant distress. Limitations: no limitations General appearance: alert, in no apparent distress Head exam: Present: atraumatic, normocephalic, normal inspection Eye exam: Present: normal appearance, PERRL, EOMI. Absent: scleral icterus, conjunctival injection, periorbital swelling ENT exam: Present: normal exam, mucous membranes moist Neck exam: Present: normal inspection. Absent: tenderness, meningismus, lymphadenopathy Respiratory exam: Present: normal lung sounds bilaterally. Absent: respiratory distress, wheezes, rales, rhonchi, stridor Cardiovascular Exam: Present: regular rate, normal rhythm, normal heart sounds. Absent: systolic murmur, diastolic murmur, rubs, gallop, clicks GI/Abdominal exam: Present: soft, normal bowel sounds. Absent: distended, tenderness, guarding, rebound, rigid Extremities exam: Present: normal inspection, full ROM, normal capillary refill. Absent: tenderness, pedal edema, joint swelling, calf tenderness Right Upper Arm exam: Present: normal inspection, full ROM Elbow exam: Present: normal inspection, full ROM Forearm Wrist exam: Present: normal inspection, full ROM Hand Wrist exam: Present: tenderness, laceration (flap laceration 2 cm over thumb PIP, flap laceration 2cm over 2nd digit PIP ). Absent: normal inspection, full ROM Neuro motor exam: Present: wrist extension intact, thumb opposition intact, thumb IP flexion intact, thumb adduction intact, fingers 2-5 abduction intact Vascular: Present: normal capillary refill Back exam: Present: normal inspection Neurological exam: Present: alert, oriented X3, CN II-XII intact Psychiatric exam: Present: normal affect, normal mood Skin exam: Present: warm, dry, intact, normal color. Absent: rash Course Vital Signs 11/24/19 18:10 Temperature 98.7 F Pulse Rate 71 Respiratory 18 Rate Blood Pressure 118/66 O2 Sat by Pulse 100 Oximetry Procedures - Laceration Laceration #1 Site: other (R thumb) Size (cm): 2 Description: flap Anesthetic Used: lidocaine 1% Anesthesia Technique: local infiltration Amount (mls): 2 Pre-repair: wound explored Type of Sutures: nylon Size of Sutures: 5-0 Number of Sutures: 5 Technique: simple, interrupted Patient Tolerated Procedure: well, no complications Laceration #2 Site: other (right hand ) Description: linear Depth: simple, single layer Anesthetic Used: lidocaine 1% Anesthesia Technique: local infiltration Amount (mls): 2 Pre-repair: wound explored, irrigated extensively Type of Sutures: nylon Size of Sutures: 5-0 Number of Sutures: 5 Technique: simple, interrupted Patient Tolerated Procedure: well, no complications Medical Decision Making - Medical Decision Making Patient is a 31-year-old female presents today with a laceration over her right hand after washing dishes. She has 2 separate flap lacerations over the first and second PIP. She has full range of motion of the finger. Lacerations were thoroughly irrigated and closed with 5 sutures each. Patient has normal sensation and full range of motion. No tendon involvement. Patient was advised on suture care. Vaccines are up-to-date. Discussed following up with PCP. All questions answered. Disposition Clinical Impression: Finger laceration Disposition: HOME SELF-CARE Condition: Good Instructions (If sedation given, give patient instructions): Care For Your Stitches (ED) Additional Instructions: Please return to the emergency room in 8-10 days to have sutures removed. Please leave wound covered for the first 24-48 hours and then leave open to air after that time. Please use clean soap and water to clean the suture area to prevent scabbing over the top of your sutures. Please watch for any signs of infection which may include but not limited to increased pain, swelling, redness, fever or chills. Please return to the emergency room if any signs of infection do occur. Please return to the emergency room for any other concerns or complications. Is patient prescribed a controlled substance at d/c from ED?: No Referrals: Nonstaff,Physician [Primary Care Provider] - 1-2 days Time of Disposition: 19:12
== END 2019-11-24 19:16 | disposition home or self-care (01) ==
LOC: EC 18:05
DX: S61.011A Laceration without foreign body of right thumb without damage to nail, initial encounter (principal); F17.200 Nicotine dependence, unspecified, uncomplicated; Z85.3 Personal history of malignant neoplasm of breast; Z90.13 Acquired absence of bilateral breasts and nipples; W25.XXXA Contact with sharp glass, initial encounter; Y93.G1 Activity, food preparation and clean up; Y92.009 Unspecified place in unspecified non-institutional (private) residence as the place of occurrence of the external cause
CPT/HCPCS: 12001; 99283; J2001

== ENCOUNTER → 2020-06-10 | Outpatient (CLI) | payer MEDICAID, OTHER ==
--- NOTE | 2020-06-10 16:37 | US ---
EXAMINATION TYPE: US kidneys/renal and bladder DATE OF EXAM: 06/10/2020 COMPARISON: US CLINICAL HISTORY: Hematuria R31.9. Pt states intermittent gross hematuria EXAM MEASUREMENTS: Right Kidney: 12.3 x 5.3 x 5.2 cm Left Kidney: 12.3 x 5.6 x 5.0 cm Right Kidney: Appeared wnl, lower pole gassed out Left Kidney: Appeared wnl, lower pole gassed out Bladder: wnl Bilateral Jets seen: Yes Normal Post Void Residual: 59 ml There is no evidence for hydronephrosis at this point in time. No nephrolithiasis is seen. No arnulfo s are identified. The urinary bladder is anechoic. Bilateral ureteral jets are seen. IMPRESSION:
== END | disposition home or self-care (01) ==
LOC: RADUSWWP 15:58
PROVIDERS: ATTEND Family Medicine
DX: R31.9 Hematuria, unspecified (principal)
CPT/HCPCS: 76770

== ENCOUNTER → 2020-10-07 | Outpatient (CLI) | payer OTHER ==
[2020-10-07 12:43] VITALS: BP 108/67; PULSE 85; RESP 16; TEMP 97.9
--- NOTE | 2020-10-07 13:18 | P.GSHP ---
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 The size of the ductal carcinoma in situ was over 5 cm and was 0.5 cm from the posterior margin. The left breast was a simple mastectomy with mild fibrocystic changes. [place] node biopsy was also performed which was negative for malignancy. She had bilateral subpectoral expanders placed at the time of surgery by DR. Bearden. She had a scar revision following this and then had the expanders exchanged for the permanent implants in July 2013. She has done well from that time and tell approximately 2 weeks ago when she noted that the right breast implant was feeling heavy and bruised. She denies any trauma to that area. She did not have any chemo, hormonal therapy, radiation. She states her original tumor was ER/MI negative but HER-2 positive. He has not followed with medical radiation oncology. He has not followed with Dr. Bearden since she has finished her reconstruction. She had genetic testing done and she was negative for BRCA 1. Caffiene: 5 cups coffee/day nicotine: 1 pack/4 days chocolate: none hormones: Periods are normal Family history: paternal grandmother: breast cancer Hormonal History: menarche: 14 , M1, breast fed: no, age at first : 28 periods regular BCP: used them in her 20's, 5 years Surgical history: Bilateral mastectomy with reconstruction D&C Scar revision of the mastectomy sites Medical History: none Social History: smoke: 19 years 1pack/4day now used to smoke 2 PPD alcohol: rare drugs: none - Constitutional Constitutional: Denies chills, Denies fever - EENT Eyes: denies blurred vision, denies pain Ears: deny: decreased hearing, tinnitus Ears, nose, mouth and throat: Denies headache, Denies sore throat - Breasts Breasts: bilateral: as per HPI - Cardiovascular Cardiovascular: Denies chest pain, Denies shortness of breath - Respiratory Respiratory: Denies cough, Denies 7 - Gastrointestinal Gastrointestinal: Denies abdominal pain, Denies diarrhea, Denies nausea, Denies vomiting - Genitourinary (Female) Genitourinary: Denies dysuria, Denies hematuria - Menstruation Menstruation: Reports period normal - Musculoskeletal Musculoskeletal: Denies myalgias - Integumentary Integumentary: Denies pruritus, Denies rash - Neurological Neurological: Denies numbness, Denies weakness - Psychiatric Psychiatric: Denies anxiety, Denies depression - Endocrine Endocrine: Denies fatigue, Denies weight change - Hematologic/Lymphatic Comment: none - Allergic/Immunologic Allergic/Immunologic: Reports seasonal allergies Past Medical History Past Medical History: Cancer Additional Past Medical History / Comment(s): breast ca in past with bilateral mastectomy 02/2013 History of Any Multi-Drug Resistant Organisms: None Reported Past Surgical History: Breast Surgery Additional Past Surgical History / Comment(s): penny mastectomy with reconstruction 02/2013; scar revisions 03/2013; D&C approx 09/2008 or 2009; Past Anesthesia/Blood Transfusion Reactions: No Reported Reaction Past Psychological History: No Psychological Hx Reported Smoking Status: Light tobacco smoker Past Alcohol Use History: Rare Past Drug Use History: None Reported - Past Family History Father Family Medical History: Coronary Artery Disease (CAD), Hypertension Medications and Allergies Home Medications Medication Instructions Recorded Confirmed Type No Known Home Medications 04/07/18 10/07/20 History Allergies Allergy/AdvReac Type Severity Reaction Status Date / Time No Known Allergies Allergy Verified 10/07/20 12:37 Surgical - Exam Vital Signs Temp Pulse Resp BP Pulse Ox 97.9 F 85 16 108/67 100 10/07/20 12:38 10/07/20 12:38 10/07/20 12:38 10/07/20 12:38 10/07/20 12:38 BMI 21.3 - General no distress - Eyes normal ocular movement - ENT normal pinna, normal nares - Neck no masses, trachea midline - Respiratory normal expansion, normal respiratory effort - Cardiovascular Rhythm: regular Heart Sounds: normal: S1, S2 - Abdomen Abdomen: soft - Musculoskeletal normal gait - Psychiatric oriented to time, oriented to place, memory intact breast exam: BRA: small inspection: incisions clean and dry bilateral status post bilateral mastectomy Operation: Right chest wall: No evidence of any recurrent disease and chest wall Right axilla: No adenopathy of concern The implant on the right appears to be rotated slightly towards the axilla Left chest wall: No evidence of any disease Left axilla: No adenopathy of concern Results Operative report from 2013 Dr. Bearden/Dr. Sav Bellamy reviewed pathology from 2013 reviewed Assessment and Plan Assessment: Impression: 1. Patient is a 40-year-old white female status post bilateral mastectomy for high-grade DCIS right breast in 2013, no evidence of recurrent cancer 2. Heavy sensation at the right implant site with question of the implant sliding towards the axilla Plan: 1. Bilateral MRI rule out rupture of implant 2. Follow up after MRI CC: Dr. Holland
== END ==
LOC: WWCWWP 12:10
PROVIDERS: ATTEND Surgery
DX: N65.0 Deformity of reconstructed breast (principal); F17.210 Nicotine dependence, cigarettes, uncomplicated; Z90.13 Acquired absence of bilateral breasts and nipples; Z85.3 Personal history of malignant neoplasm of breast

== ENCOUNTER → 2020-11-09 | Outpatient (CLI) | payer OTHER ==
--- NOTE | 2020-11-10 11:49 | BMR ---
EXAMINATION TYPE: MR breast BILAT wo/w con DATE OF EXAM: 11/09/2020 COMPARISON: Right breast ultrasound October 22, 2016 BI-RADS 1 HISTORY: History of breast CA 8 years ago with bilateral mastectomy and silicone implant placement. R ecent change in positioning of right breast. History of 2 grandmothers with breast cancer. Last known menstrual period October 27. TECHNIQUE: A series of fat and water weighted images in the long and short axis views of both breasts are obtained in conjunction with dynamic contrast MRI with subtraction technique. The patient was i njected with 6.5 mL intravenous Gadavist gadolinium contrast. Three-dimensional and additional post processing imaging is created on independent workstation and reviewed during official interpretation of this study. FINDINGS: Bilateral subpectoral silicone breast implants are identified. No silicone foci identified to suggest extracapsular rupture. Slight lobulation to bilateral contours, silicone implants are symm etric in size. No suspicious infolding or linguini or keyhole sign to suggest intracapsular rupture. Symmetric prominent but subcentimeter bilateral axillary lymph nodes. No abnormal greater than 1 cm a xillary adenopathy and coronal STIR or axial T2-weighted images. Delayed dynamic imaging shows no sasha picious internal mammary adenopathy. No suspicious enhancement or enhancing masses identified in eith er breast. The chest wall is intact. No suspicious incidental findings seen. IMPRESSION: No MRI evidence for invasive malignancy or silicone implant rupture. BI-RADS 2 benign findings right breast BI-RADS 2 benign findings left breast Recommendation: Manage patient symptoms on clinical basis.
== END | disposition home or self-care (01) ==
LOC: RADMRIMAIN 11:38
PROVIDERS: ATTEND Surgery
DX: Z80.3 Family history of malignant neoplasm of breast (principal); Z85.3 Personal history of malignant neoplasm of breast; Z90.13 Acquired absence of bilateral breasts and nipples
CPT/HCPCS: C8937; C8908; A9585; 77049

== ENCOUNTER → 2020-11-18 | Outpatient (CLI) | payer OTHER ==
[2020-11-18 13:00] VITALS: BP 107/74; PULSE 77; RESP 18; TEMP 98.4
--- NOTE | 2020-11-18 13:28 | P.PN ---
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 The size of the ductal carcinoma in situ was over 5 cm and was 0.5 cm from the posterior margin. The left breast was a simple mastectomy with mild fibrocystic changes. [place] node biopsy was also performed which was negative for malignancy. She had bilateral subpectoral expanders placed at the time of surgery by DR. Bearden. She had a scar revision following this and then had the expanders exchanged for the permanent implants in July 2013. She has done well from that time and tell approximately 2 weeks ago when she noted that the right breast implant was feeling heavy and bruised. She denies any trauma to that area. She did not have any chemo, hormonal therapy, radiation. She states her original tumor was ER/MD negative but HER-2 positive. He has not followed with medical or radiation oncology. She has not followed with Dr. Bearden since she has finished her reconstruction. She had a bilateral breast MRI performed on 11-09-20. This was reviewed personally with Dr. Matthews. There is not felt to be any implant rupture and no lesions of concern in the breast. The patient continues to be concerned about the right breast seeming to be more lateral and having more lateral protrusion on the left breast. She is not complaining of pain. She has not noted any lumps or masses that she is concerned about. She had genetic testing done and she was negative for BRCA 1. Caffiene: 5 cups coffee/day nicotine: 1 pack/4 days chocolate: none hormones: Periods are normal Family history: paternal grandmother: breast cancer Hormonal History: menarche: 14 , M1, breast fed: no, age at first : 28 periods regular BCP: used them in her 20's, 5 years Surgical history: Bilateral mastectomy with reconstruction D&C Scar revision of the mastectomy sites Medical History: none Social History: smoke: 19 years 1pack/4day now used to smoke 2 PPD alcohol: rare drugs: none - Constitutional Constitutional: Denies chills, Denies fever - EENT Eyes: denies blurred vision, denies pain Ears: deny: decreased hearing, tinnitus Ears, nose, mouth and throat: Denies headache, Denies sore throat - Breasts Breasts: bilateral: as per HPI - Cardiovascular Cardiovascular: Denies chest pain, Denies shortness of breath - Respiratory Respiratory: Denies cough, - Gastrointestinal Gastrointestinal: Denies abdominal pain, Denies diarrhea, Denies nausea, Denies vomiting - Genitourinary (Female) Genitourinary: Denies dysuria, Denies hematuria - Menstruation Menstruation: Reports period normal - Musculoskeletal Musculoskeletal: Denies myalgias - Integumentary Integumentary: Denies pruritus, Denies rash - Neurological Neurological: Denies numbness, Denies weakness - Psychiatric Psychiatric: Denies anxiety, Denies depression - Endocrine Endocrine: Denies fatigue, Denies weight change - Hematologic/Lymphatic Comment: none - Allergic/Immunologic Allergic/Immunologic: Reports seasonal allergies Past Medical History Objective - Vital Signs Vital signs: Vital Signs Temp 98.4 F 11/18/20 12:56 Pulse 77 11/18/20 12:56 Resp 18 11/18/20 12:56 BP 107/74 11/18/20 12:56 Pulse Ox 98 11/18/20 12:56 Intake & Output 11/17/20 11/18/20 11/18/20 18:59 06:59 18:59 Weight 61.235 kg - Exam BMI 20.5 - Constitutional General appearance: Present: cooperative - EENT ENT: Present: hearing grossly normal - Neck Neck: Present: normal ROM - Respiratory Respiratory: bilateral: CTA - Cardiovascular Heart sounds: normal: S1, S2 - Integumentary Integumentary: Present: normal turgor - Psychiatric Psychiatric: Present: A&O x's 3, appropriate affect, intact judgment & insight - Additional findings Additional findings: Breast examination from [facility] Block: Small Inspection: Incisions clean and dry bilateral status post bilateral mastectomy Palpation at that time Chest wall: No evidence of any recurrent disease on the chest wall Right axilla: No adenopathy of concern The implant on the right appears to be rotated slightly towards the axilla Left chest wall: No evidence of any disease Left axilla: No adenopathy of concern Assessment and Plan Assessment: Impression: 1. Patient is a 40-year-old white female status post bilateral mastectomy for high-grade DCIS right breast in 2012, no evidence of recurrent cancer 2. Heavy sensation of the right implant with a feeling that it is sliding towards the axilla 3. [place] [id number] does not show any evidence of rupture or reported any asymmetry Plan: 1. Appointment with plastic surgery 2. Follow up here in 1 year 3. Follow up sooner if any questions or concerns CC: Dr. Holland
== END ==
LOC: WWCWWP 12:48
PROVIDERS: ATTEND Surgery
DX: T85.898D Other specified complication of other internal prosthetic devices, implants and grafts, subsequent encounter (principal); F17.210 Nicotine dependence, cigarettes, uncomplicated; Z85.3 Personal history of malignant neoplasm of breast; Z90.13 Acquired absence of bilateral breasts and nipples

== ENCOUNTER 2020-11-26 12:09 | Emergency (ER) | payer OTHER ==
[2020-11-26 12:42] VITALS: TEMP 98.7
[2020-11-26] MEDS ORDERED: DIPHENOX-ATROP 2.5-0.025 MG 1 EACH TAB PO STA (13:24)
[2020-11-26] MEDS ORDERED: ONDANSETRON 4 MG/2 ML VIAL IVP STA (13:24)
[2020-11-26] MEDS ORDERED: SODIUM CHLORIDE 0.9% 1,000 ML IV STA (13:24)
[2020-11-26] MEDS ORDERED: SODIUM CHLORIDE 0.9% 500 ML 500 ML IV STA (13:24)
--- NOTE | 2020-11-26 13:27 | ED ---
General Adult HPI - General Chief complaint: Syncope Stated complaint: vomiting, syncope Time Seen by Provider: 11/26/20 12:40 Source: patient, RN notes reviewed, old records reviewed Mode of arrival: wheelchair Limitations: no limitations - History of Present Illness Initial comments: This is a 40-year-old female who presents emergency department stating that yesterday and throughout the night she started vomiting and diarrhea. Patient states she was laying on the bathroom floor and she went to stand up and she got lightheaded and passed out. states she passed out for approximately 30 seconds. Patient states she did bump her head on a chair but only has a very minimal tenderness in the left occipital region. Patient denies any significant neck pain. Patient denies any fever chills or cough. Patient states she has abdominal cramping but no abdominal pain. Patient denies any back pain. Patient denies any other injury. Patient states remains nauseated - Related Data Home Medications Medication Instructions Recorded Confirmed No Known Home Medications 04/07/18 11/18/20 Allergies Allergy/AdvReac Type Severity Reaction Status Date / Time No Known Allergies Allergy Verified 11/26/20 12:42 Review of Systems ROS Statement: Those systems with pertinent positive or pertinent negative responses have been documented in the HPI. ROS Other: All systems not noted in ROS Statement are negative. Past Medical History Past Medical History: Cancer Additional Past Medical History / Comment(s): breast ca in past with bilateral mastectomy 02/2013 History of Any Multi-Drug Resistant Organisms: None Reported Past Surgical History: Breast Surgery Additional Past Surgical History / Comment(s): penny mastectomy with reconstruction 02/2013; scar revisions 03/2013; D&C approx 09/2008 or 2009; Past Anesthesia/Blood Transfusion Reactions: No Reported Reaction Past Psychological History: No Psychological Hx Reported Smoking Status: Light tobacco smoker Past Alcohol Use History: Rare Past Drug Use History: None Reported - Past Family History Father Family Medical History: Coronary Artery Disease (CAD), Hypertension General Exam - General Exam Comments Initial Comments: GENERAL: Patient is well-developed and well-nourished. Patient is nontoxic and well- hydrated and is in mild distress. ENT: Neck is soft and supple. No significant lymphadenopathy is noted. Oropharynx is clear. Dry mucous membranes. Neck has full range of motion without eliciting any pain. EYES: The sclera were anicteric and conjunctiva were pink and moist. Extraocular movements were intact and pupils were equal round and reactive to light. Eyelids were unremarkable. PULMONARY: Unlabored respirations. Good breath sounds bilaterally. No audible rales rhonchi or wheezing was noted. CARDIOVASCULAR: There is a regular rate and rhythm without any murmurs gallops or rubs. ABDOMEN: Soft and nontender with normal bowel sounds. SKIN: Skin is clear with no lesions or rashes and otherwise unremarkable. NEUROLOGIC: Patient is alert and oriented x3. Cranial nerves II through XII are grossly intact. Motor and sensory are also intact. Normal speech, volume and content. Symmetrical smile. MUSCULOSKELETAL: Normal extremities with adequate strength and full range of motion. LYMPHATICS: No significant lymphadenopathy is noted PSYCHIATRIC: Normal psychiatric evaluation. Limitations: no limitations Course Vital Signs 11/26/20 12:39 Temperature 98.7 F Pulse Rate 64 Respiratory 20 Rate Blood Pressure 96/48 O2 Sat by Pulse 100 Oximetry Medical Decision Making - Medical Decision Making EKG shows sinus bradycardia 56 bpm NH interval 146 dresses 96 Q-T intervals 4:30 QTC is 414. Patient's EKG shows no ST segment elevation or depression. After patient received fluids and Zofran as well as Lomotil she was feeling considerably better. - Lab Data Result diagrams: 11/26/20 14:19 11/26/20 14:19 Lab Results 11/26/20 11/26/20 Range/Units 14:19 14:19 WBC 15.4 H (3.8-10.6) k/uL RBC 4.62 (3.80-5.40) m/uL Hgb 14.7 (11.4-16.0) gm/dL Hct 44.9 (34.0-46.0) % MCV 97.1 (80.0-100.0) fL MCH 31.7 (25.0-35.0) pg MCHC 32.7 (31.0-37.0) g/dL RDW 12.8 (11.5-15.5) % Plt Count 226 (150-450) k/uL MPV 7.1 Neutrophils % 94 % Lymphocytes % 2 % Monocytes % 2 % Eosinophils % 1 % Basophils % 0 % Neutrophils # 14.5 H (1.3-7.7) k/uL Lymphocytes # 0.3 L (1.0-4.8) k/uL Monocytes # 0.4 (0-1.0) k/uL Eosinophils # 0.1 (0-0.7) k/uL Basophils # 0.0 (0-0.2) k/uL Sodium 139 (137-145) mmol/L Potassium 4.7 (3.5-5.1) mmol/L Chloride 110 H (98-107) mmol/L Carbon Dioxide 20 L (22-30) mmol/L Anion Gap 9 mmol/L BUN 19 H (7-17) mg/dL Creatinine 0.84 (0.52-1.04) mg/dL Est GFR (CKD-EPI)AfAm >90 (>60 ml/min/1.73 sqM) Est GFR (CKD-EPI)NonAf 88 (>60 ml/min/1.73 sqM) Glucose 110 H (74-99) mg/dL Calcium 9.5 (8.4-10.2) mg/dL Total Bilirubin 0.5 (0.2-1.3) mg/dL AST 29 (14-36) U/L ALT 20 (4-34) U/L Alkaline Phosphatase 52 (38-126) U/L Total Protein 7.6 (6.3-8.2) g/dL Albumin 4.9 (3.5-5.0) g/dL Amylase 52 (30-110) U/L Lipase 50 (23-300) U/L Disposition Clinical Impression: Vasovagal syncope, Gastroenteritis Disposition: HOME SELF-CARE Condition: Good Instructions (If sedation given, give patient instructions): Gastroenteritis (ED) Is patient prescribed a controlled substance at d/c from ED?: No Referrals: Hardik Holland DO [Primary Care Provider] - 1-2 days Time of Disposition: 14:55
[2020-11-26 14:33] LABS: Basophils % (A) 0 %; Eosinophils # (A) 0.1 k/uL (0-0.7); Eosinophils % (A) 1 %; HCT 44.9 % (34.0-46.0); HGB 14.7 gm/dL (11.4-16.0); Lymphocytes # (A) 0.3 k/uL (1.0-4.8); Lymphocytes % (A) 2 %; MCH 31.7 pg (25.0-35.0); MCHC 32.7 g/dL (31.0-37.0); MCV 97.1 fL (80.0-100.0); Mean Platelet Volume 7.1; Monocytes # (A) 0.4 k/uL (0-1.0); Monocytes % (A) 2 %; Neutrophils # (A) 14.5 k/uL (1.3-7.7); Neutrophils % (A) 94 %; Platelet Count 226 k/uL (150-450); RBC 4.62 m/uL (3.80-5.40); RDW 12.8 % (11.5-15.5); WBC 15.4 k/uL (3.8-10.6)
[2020-11-26 14:41] LABS: ALT 20 U/L (4-34); AST 29 U/L (14-36); African American GFR (CKD) >90 (>60 ml/min/1.73 sqM); Albumin 4.9 g/dL (3.5-5.0); Alkaline Phosphatase 52 U/L (38-126); Amylase 52 U/L (30-110); Anion Gap 9 mmol/L; Blood Urea Nitrogen 19 mg/dL (7-17); Calcium 9.5 mg/dL (8.4-10.2); Carbon Dioxide 20 mmol/L (22-30); Chloride 110 mmol/L (98-107); Glucose 110 mg/dL (74-99); Lipase 50 U/L (23-300); Non-African American GFR(CKD) 88 (>60 ml/min/1.73 sqM); Potassium 4.7 mmol/L (3.5-5.1); Sodium 139 mmol/L (137-145); Total Bilirubin 0.5 mg/dL (0.2-1.3); Total Protein 7.6 g/dL (6.3-8.2)
[2020-11-26] MEDS ORDERED: DIPHENOX-ATROP STARTER PACK 8 TAB BTL PO STA (14:55)
[2020-11-26] MEDS ORDERED: ONDANSETRON 4 MG ODT STARTER PACK 2 TAB BTL PO STA (14:55)
[2020-11-26 15:35] VITALS: BP 102/75; PULSE 75; RESP 18
== END 2020-11-26 15:38 | disposition home or self-care (01) ==
LOC: EC 12:09
DX: R55 Syncope and collapse (principal); K52.9 Noninfective gastroenteritis and colitis, unspecified; F17.290 Nicotine dependence, other tobacco product, uncomplicated
CPT/HCPCS: 99284; 36415; 80053; 82150; 83690; 85025; 96374; 96361; J2405; S0119; 93005

== ENCOUNTER 2020-11-27 17:56 | Inpatient (IN) | payer OTHER ==
[2020-11-27] MEDS ORDERED: SODIUM CHLORIDE 0.9% 1,000 ML IV STA (18:26)
[2020-11-27] MEDS ORDERED: ONDANSETRON 4 MG/2 ML VIAL IVP STA (18:26)
[2020-11-27] MEDS ORDERED: MORPHINE SULFATE 4 MG/ML SYRINGE IV STA (18:26)
[2020-11-27 18:46] LABS: Basophils # (A) 0.1 k/uL (0-0.2); Basophils % (A) 1 %; Eosinophils # (A) 0.2 k/uL (0-0.7); Eosinophils % (A) 2 %; HCT 41.3 % (34.0-46.0); HGB 14.3 gm/dL (11.4-16.0); Lymphocytes # (A) 0.7 k/uL (1.0-4.8); Lymphocytes % (A) 9 %; MCHC 34.6 g/dL (31.0-37.0); MCV 95.2 fL (80.0-100.0); Mean Platelet Volume 7.3; Monocytes # (A) 0.5 k/uL (0-1.0); Monocytes % (A) 6 %; Neutrophils # (A) 6.6 k/uL (1.3-7.7); Neutrophils % (A) 82 %; Platelet Count 182 k/uL (150-450); RBC 4.33 m/uL (3.80-5.40); RDW 12.1 % (11.5-15.5)
[2020-11-27 18:56] LABS: HCG,Qualitative Serum Not Detected
[2020-11-27 18:59] LABS: ALT 22 U/L (4-34); AST 35 U/L (14-36); African American GFR (CKD) >90 (>60 ml/min/1.73 sqM); Albumin 4.3 g/dL (3.5-5.0); Alkaline Phosphatase 49 U/L (38-126); Anion Gap 11 mmol/L; Blood Urea Nitrogen 12 mg/dL (7-17); Carbon Dioxide 21 mmol/L (22-30); Chloride 104 mmol/L (98-107); Glucose 97 mg/dL (74-99); Lipase 37 U/L (23-300); Non-African American GFR(CKD) >90 (>60 ml/min/1.73 sqM); Potassium 3.9 mmol/L (3.5-5.1); Sodium 136 mmol/L (137-145); Total Bilirubin 0.3 mg/dL (0.2-1.3); Total Protein 6.8 g/dL (6.3-8.2)
[2020-11-27 19:02] LABS: Appearance,Urine Cloudy (Clear); Bilirubin,Urine Negative (Negative); Blood,Urine Moderate (Negative); Color,Urine Yellow; Glucose,Urine (UA) Negative (Negative); Ketones,Urine 2+ (Negative); Leukocyte Esterase,Urine Negative (Negative); Mucus,Urine Many /hpf; Nitrite,Urine Negative (Negative); Protein,Urine 1+ (Negative); RBC,Urine 18 /hpf (0-5); Specific Gravity,Urine 1.034 (1.001-1.035); Squamous Epithelial Cell,Urine 4 /hpf (0-4); WBC,Urine 5 /hpf (0-5)
--- NOTE | 2020-11-27 19:10 | ED ---
Abdominal Pain HPI - General Chief Complaint: Abdominal Pain Stated Complaint: Abd pain Time Seen by Provider: 11/27/20 18:14 Source: patient Mode of arrival: ambulatory Limitations: no limitations - History of Present Illness Initial Comments: 40-year-old female presents to emergency department with a chief complaint of abdominal pain. States she was emergency department yesterday after having abdominal pain mostly on the right side of her body along with nausea and multiple episodes of nonbilious nonbloody vomiting. She also reports having nonbloody diarrhea since yesterday. She was given symptomatically relief and she felt better so she was discharged. States she woke up this morning and the pain still persisted. It actually increased in severity and now it is mostly localized to the right lower quadrant and right groin. She does report chills but denies any fevers. - Related Data Home Medications Medication Instructions Recorded Confirmed No Known Home Medications 04/07/18 11/27/20 Allergies Allergy/AdvReac Type Severity Reaction Status Date / Time No Known Allergies Allergy Verified 11/27/20 18:41 Review of Systems ROS Statement: Those systems with pertinent positive or pertinent negative responses have been documented in the HPI. ROS Other: All systems not noted in ROS Statement are negative. Past Medical History Past Medical History: Cancer Additional Past Medical History / Comment(s): breast ca in past with bilateral mastectomy 02/2013 History of Any Multi-Drug Resistant Organisms: None Reported Past Surgical History: Breast Surgery Additional Past Surgical History / Comment(s): penny mastectomy with reconstruction 02/2013; scar revisions 03/2013; D&C approx 09/2008 or 2009; Past Anesthesia/Blood Transfusion Reactions: No Reported Reaction Past Psychological History: No Psychological Hx Reported Smoking Status: Light tobacco smoker Past Alcohol Use History: Rare Past Drug Use History: None Reported - Past Family History Father Family Medical History: Coronary Artery Disease (CAD), Hypertension General Exam Limitations: no limitations General appearance: alert, in no apparent distress Head exam: Present: atraumatic, normocephalic, normal inspection Eye exam: Present: normal appearance, PERRL, EOMI Pupils: Present: normal accommodation ENT exam: Present: normal exam, normal oropharynx, mucous membranes moist, TM's normal bilaterally, normal external ear exam Neck exam: Present: normal inspection, full ROM. Absent: tenderness, lymphadenopathy Respiratory exam: Present: normal lung sounds bilaterally. Absent: respiratory distress, wheezes, rales, rhonchi, stridor Cardiovascular Exam: Present: regular rate, normal rhythm, normal heart sounds. Absent: systolic murmur Extremities exam: Present: normal inspection, full ROM, normal capillary refill. Absent: tenderness, pedal edema, joint swelling Back exam: Present: normal inspection, full ROM. Absent: tenderness, CVA tenderness (R), CVA tenderness (L) Neurological exam: Present: alert, oriented X3 Psychiatric exam: Present: normal affect, normal mood Skin exam: Present: warm, dry, intact, normal color Course Vital Signs 11/27/20 11/27/20 17:58 20:20 Temperature 98.7 F Pulse Rate 63 77 Respiratory 20 18 Rate Blood Pressure 96/55 107/62 O2 Sat by Pulse 100 99 Oximetry Medical Decision Making - Medical Decision Making 40-year-old female presents to emergency department with a chief complaint of abdominal pain. On physical examination, right lower quadrant abdominal tenderness. Patient was given IV fluids, antiemetics and analgesia. CBC CMP unremarkable. UA shows hematuria but she is currently on her menstrual period. Not . C. diff pending. CT of abdomen and pelvis reveals large bowel distention and loops suggesting an ileus. Will admit patient for observation. I spoke with who will admit and will consult general surgery. Case discussed with Dr. Casey. - Lab Data Result diagrams: 11/27/20 18:37 11/27/20 18:37 Lab Results 11/27/20 11/27/20 11/27/20 Range/Units 18:37 18:37 18:37 WBC 8.0 (3.8-10.6) k/uL RBC 4.33 (3.80-5.40) m/uL Hgb 14.3 (11.4-16.0) gm/dL Hct 41.3 (34.0-46.0) % MCV 95.2 (80.0-100.0) fL MCH 33.0 (25.0-35.0) pg MCHC 34.6 (31.0-37.0) g/dL RDW 12.1 (11.5-15.5) % Plt Count 182 (150-450) k/uL MPV 7.3 Neutrophils % 82 % Lymphocytes % 9 % Monocytes % 6 % Eosinophils % 2 % Basophils % 1 % Neutrophils # 6.6 (1.3-7.7) k/uL Lymphocytes # 0.7 L (1.0-4.8) k/uL Monocytes # 0.5 (0-1.0) k/uL Eosinophils # 0.2 (0-0.7) k/uL Basophils # 0.1 (0-0.2) k/uL Sodium 136 L (137-145) mmol/L Potassium 3.9 (3.5-5.1) mmol/L Chloride 104 (98-107) mmol/L Carbon Dioxide 21 L (22-30) mmol/L Anion Gap 11 mmol/L BUN 12 (7-17) mg/dL Creatinine 0.67 (0.52-1.04) mg/dL Est GFR (CKD-EPI)AfAm >90 (>60 ml/min/1.73 sqM) Est GFR (CKD-EPI)NonAf >90 (>60 ml/min/1.73 sqM) Glucose 97 (74-99) mg/dL Plasma Lactic Acid Brad 1.3 (0.7-2.0) mmol/L Calcium 9.0 (8.4-10.2) mg/dL Total Bilirubin 0.3 (0.2-1.3) mg/dL AST 35 (14-36) U/L ALT 22 (4-34) U/L Alkaline Phosphatase 49 (38-126) U/L Total Protein 6.8 (6.3-8.2) g/dL Albumin 4.3 (3.5-5.0) g/dL Lipase 37 (23-300) U/L HCG, Qual Not Detected Urine Color Urine Appearance (Clear) Urine pH (5.0-8.0) Ur Specific [place] (1.001-1.035) Urine Protein (Negative) Urine Glucose (UA) (Negative) Urine Ketones (Negative) Urine Blood (Negative) Urine Nitrite (Negative) Urine Bilirubin (Negative) Urine Urobilinogen (<2.0) mg/dL Ur Leukocyte Esterase (Negative) Urine RBC (0-5) /hpf Urine WBC (0-5) /hpf Ur Squamous Epith Cells (0-4) /hpf Urine Mucus (None) /hpf 11/27/20 Range/Units 18:44 WBC (3.8-10.6) k/uL RBC (3.80-5.40) m/uL Hgb (11.4-16.0) gm/dL Hct (34.0-46.0) % MCV (80.0-100.0) fL MCH (25.0-35.0) pg MCHC (31.0-37.0) g/dL RDW (11.5-15.5) % Plt Count (150-450) k/uL MPV Neutrophils % % Lymphocytes % % Monocytes % % Eosinophils % % Basophils % % Neutrophils # (1.3-7.7) k/uL Lymphocytes # (1.0-4.8) k/uL Monocytes # (0-1.0) k/uL Eosinophils # (0-0.7) k/uL Basophils # (0-0.2) k/uL Sodium (137-145) mmol/L Potassium (3.5-5.1) mmol/L Chloride (98-107) mmol/L Carbon Dioxide (22-30) mmol/L Anion Gap mmol/L BUN (7-17) mg/dL Creatinine (0.52-1.04) mg/dL Est GFR (CKD-EPI)AfAm (>60 ml/min/1.73 sqM) Est GFR (CKD-EPI)NonAf (>60 ml/min/1.73 sqM) Glucose (74-99) mg/dL Plasma Lactic Acid Brad (0.7-2.0) mmol/L Calcium (8.4-10.2) mg/dL Total Bilirubin (0.2-1.3) mg/dL AST (14-36) U/L ALT (4-34) U/L Alkaline Phosphatase (38-126) U/L Total Protein (6.3-8.2) g/dL Albumin (3.5-5.0) g/dL Lipase (23-300) U/L HCG, Qual Urine Color Yellow Urine Appearance Cloudy H (Clear) Urine pH 6.0 (5.0-8.0) Ur Specific [place] 1.034 (1.001-1.035) Urine Protein 1+ H (Negative) Urine Glucose (UA) Negative (Negative) Urine Ketones 2+ H (Negative) Urine Blood Moderate H (Negative) Urine Nitrite Negative (Negative) Urine Bilirubin Negative (Negative) Urine Urobilinogen 2.0 (<2.0) mg/dL Ur Leukocyte Esterase Negative (Negative) Urine RBC 18 H (0-5) /hpf Urine WBC 5 (0-5) /hpf Ur Squamous Epith Cells 4 (0-4) /hpf Urine Mucus Many H (None) /hpf Disposition Clinical Impression: Abdominal pain, Ileus, unspecified Disposition: ADMITTED IP TO THIS HOSP Condition: Fair Is patient prescribed a controlled substance at d/c from ED?: No Referrals: Hardik Holland DO [Primary Care Provider] - 1-2 days Time of Disposition: 20:58
--- NOTE | 2020-11-27 19:35 | CT ---
EXAMINATION TYPE: CT abdomen pelvis w con DATE OF EXAM: 11/27/2020 COMPARISON: None HISTORY: H/O abd pain starting today CT DLP: 594.8 mGycm Automated exposure control for dose reduction was used. CONTRAST: Performed with IV Contrast, patient injected with 100ml mL of Isovue 300. Images obtained from the diaphragm to the floor the pelvis with IV contrast. FINDINGS: Lung bases are clear. There is no pleural effusion. Heart size is normal. Liver spleen stomach pancreas appear intact. The bile ducts are not dilated. Gallbladder is irregular . There is some fluid around the gallbladder. There is no adrenal mass. Kidneys show satisfactory contrast opacification. There is no hydronephrosi s. Ureters are not dilated. There is distended fluid-filled large bowel. There is gas and fluid down to the rectum. There is no evidence of free air. There is no ascites. There is no retroperitoneal rigoberto nopathy. The cecum is on the left side. There is air-filled normal-appearing appendix. Bladder is almost empty. Uterus is anteverted. There is no evidence of a pelvic mass. Lumbar vertebra have normal alignment. Posterior elements are intact. There is no compression fractur e. Bony pelvis is intact. The hip joints are intact. IMPRESSION: Distended large bowel with fluid levels consistent with large bowel ileus and diarrhea. No free air.
[2020-11-27] MEDS ORDERED: IBUPROFEN 400 MG TAB PO PRN (20:53)
[2020-11-27] MEDS ORDERED: ONDANSETRON 4 MG/2 ML VIAL IVP PRN (20:53)
[2020-11-27] MEDS ORDERED: KETOROLAC 15 MG/ML 1 ML VIAL IVP PRN (20:53)
[2020-11-27] MEDS ORDERED: ACETAMINOPHEN TAB 325 MG TAB PO PRN (20:53)
[2020-11-27] MEDS ORDERED: NALOXONE 0.4 MG/ML 1 ML VIAL IV PRN (20:53)
[2020-11-27] MEDS ORDERED: SODIUM CHLORIDE 0.9% 1,000 ML IV SCH (21:00)
[2020-11-28 07:30] VITALS: RESP 16; TEMP 98
[2020-11-28 09:20] LABS: Basophils % (A) 0 %; Eosinophils # (A) 0.1 k/uL (0-0.7); Eosinophils % (A) 1 %; HCT 38.5 % (34.0-46.0); HGB 12.7 gm/dL (11.4-16.0); Lymphocytes # (A) 0.8 k/uL (1.0-4.8); Lymphocytes % (A) 12 %; MCV 97.2 fL (80.0-100.0); Mean Platelet Volume 7.2; Monocytes # (A) 0.5 k/uL (0-1.0); Monocytes % (A) 8 %; Neutrophils # (A) 5.2 k/uL (1.3-7.7); Neutrophils % (A) 77 %; Platelet Count 152 k/uL (150-450); RBC 3.96 m/uL (3.80-5.40); RDW 12.7 % (11.5-15.5); WBC 6.7 k/uL (3.8-10.6)
[2020-11-28 09:42] LABS: ALT 77 U/L (4-34); AST 87 U/L (14-36); African American GFR (CKD) >90 (>60 ml/min/1.73 sqM); Albumin 3.4 g/dL (3.5-5.0); Albumin/Globulin Ratio 1.4; Alkaline Phosphatase 41 U/L (38-126); Anion Gap 5 mmol/L; Blood Urea Nitrogen 9 mg/dL (7-17); Calcium 8.3 mg/dL (8.4-10.2); Carbon Dioxide 24 mmol/L (22-30); Chloride 108 mmol/L (98-107); Globulin 2.4 g/dL; Glucose 84 mg/dL (74-99); Magnesium 2.1 mg/dL (1.6-2.3); Non-African American GFR(CKD) >90 (>60 ml/min/1.73 sqM); Potassium 3.6 mmol/L (3.5-5.1); Sodium 137 mmol/L (137-145); Total Bilirubin <0.1 mg/dL (0.2-1.3); Total Protein 5.8 g/dL (6.3-8.2)
[2020-11-28 11:43] VITALS: BP 117/67; PULSE 76
--- NOTE | 2020-11-28 13:48 | P.GSCN ---
History of Present Illness Consult date: 11/28/20 History of present illness: CHIEF COMPLAINT: Abdominal pain with vomiting and diarrhea HISTORY OF PRESENT ILLNESS: This is a 40-year-old female with a known history of breast cancer with bilateral mastectomy about 8 years ago. She also has history of nicotine dependence. Patient presents to the emergency room with complaints of lower abdominal cramping with vomiting and diarrhea that started on Saturday. She initially came to the ER on Saturday because she did have a syncopal episode when she had been using the bathroom. She reports only being out for a few seconds. She was discharged from the ER with a gastroenteritis and vasovagal syncope. Patient does report that her daughter had been sick with vomiting at home as well. She denies any fever chills or sweats. The vomiting has now resolved. However she is still having diarrhea. She had a computed tomography scan of the abdomen and pelvis that shows distended large bowel with fluid levels consistent with a large bowel ileus and diarrhea. No free air. There is some mild fluid around the gallbladder. Cholecystitis is possible. Surgical service has been consulted in regards to the large bowel ileus. Patient denies any prior surgical history to the abdomen. Denies any history of bowel obstruction or ileus. PAST MEDICAL HISTORY: See list. PAST SURGICAL HISTORY: See list. MEDICATIONS: See list. ALLERGIES: See list. SOCIAL HISTORY: No illicit drug use. REVIEW OF SYSTEMS: CONSTITUTIONAL: Denies fever or chills. HEENT: Denies blurred vision, vision changes, or eye pain. Denies hemoptysis CARDIOVASCULAR: Denies chest pain or pressure. RESPIRATORY: No shortness of breath. GASTROINTESTINAL: See HPI for pertinent findings HEMATOLOGIC: Denies bleeding disorders. GENITOURINARY: Denies any blood in urine or increased urinary frequency. SKIN: Denies pruitis. Denies rash. PHYSICAL EXAM: VITAL SIGNS: Reviewed GENERAL: Well-developed in no acute distress. HEENT: No sclera icterus. Extraocular movements grossly intact. Moist buccal mucosa. Head is atraumatic, normocephalic. No nasal drainage. ABDOMEN: Soft. Nondistended. Mild diffuse discomfort with palpation of the lower abdomen NEUROLOGIC: Alert and oriented. Cranial nerves II through XII grossly intact. LABORATORY DATA: WBC 6.7 hemoglobin 12.7 platelets 152 sodium 137 creatinine 0.60 AST is 87 ALT 77 Lipase 36 Covid not detected IMAGING: computed tomography scan of the abdomen and pelvis that shows distended large bowel with fluid levels consistent with a large bowel ileus and diarrhea. No free air. There is some mild fluid around the gallbladder. Cholecystitis is possible. ASSESSMENT: 1. Abdominal pain with vomiting and diarrhea 2. Large bowel ileus 3. Mild fluid around the gallbladder PLAN: -We'll check abdominal ultrasound for further evaluation of the fluid around the gallbladder -Continue conservative management -Continue IV fluids -Continue Zofran as needed for nausea and vomiting Thank you for this consultation Physician [employer]ishing [employer] note has been reviewed by physician. Signing provider agrees with the documented findings, assessment, and plan of care. Past Medical History Past Medical History: Cancer Additional Past Medical History / Comment(s): breast ca in past with bilateral mastectomy 02/2013 History of Any Multi-Drug Resistant Organisms: None Reported Past Surgical History: Breast Surgery Additional Past Surgical History / Comment(s): penny mastectomy with reconstruction 02/2013; scar revisions 03/2013; D&C approx 09/2008 or 2009; Past Anesthesia/Blood Transfusion Reactions: No Reported Reaction Past Psychological History: No Psychological Hx Reported Smoking Status: Light tobacco smoker Past Alcohol Use History: Rare Past Drug Use History: None Reported - Past Family History Father Family Medical History: Coronary Artery Disease (CAD), Hypertension Medications and Allergies Home Medications Medication Instructions Recorded Confirmed Type No Known Home Medications 04/07/18 11/27/20 History Allergies Allergy/AdvReac Type Severity Reaction Status Date / Time No Known Allergies Allergy Verified 11/27/20 18:41 Surgical - Exam Vital Signs Temp Pulse Resp BP Pulse Ox 98.7 F 63 20 96/55 100 11/27/20 17:58 11/27/20 17:58 11/27/20 17:58 11/27/20 17:58 11/27/20 17:58 Results - Labs 11/28/20 08:52 11/28/20 08:52 Abnormal Lab Results - Last 24 Hours (Table) 11/27/20 11/27/20 11/27/20 Range/Units 18:37 18:37 18:44 Lymphocytes # 0.7 L (1.0-4.8) k/uL Sodium 136 L (137-145) mmol/L Chloride (98-107) mmol/L Carbon Dioxide 21 L (22-30) mmol/L Calcium (8.4-10.2) mg/dL Total Bilirubin (0.2-1.3) mg/dL AST (14-36) U/L ALT (4-34) U/L Total Protein (6.3-8.2) g/dL Albumin (3.5-5.0) g/dL Urine Appearance Cloudy H (Clear) Urine Protein 1+ H (Negative) Urine Ketones 2+ H (Negative) Urine Blood Moderate H (Negative) Urine RBC 18 H (0-5) /hpf Urine Mucus Many H (None) /hpf 11/28/20 11/28/20 Range/Units 08:52 08:52 Lymphocytes # 0.8 L (1.0-4.8) k/uL Sodium (137-145) mmol/L Chloride 108 H (98-107) mmol/L Carbon Dioxide (22-30) mmol/L Calcium 8.3 L (8.4-10.2) mg/dL Total Bilirubin <0.1 L (0.2-1.3) mg/dL AST 87 H (14-36) U/L ALT 77 H (4-34) U/L Total Protein 5.8 L (6.3-8.2) g/dL Albumin 3.4 L (3.5-5.0) g/dL Urine Appearance (Clear) Urine Protein (Negative) Urine Ketones (Negative) Urine Blood (Negative) Urine RBC (0-5) /hpf Urine Mucus (None) /hpf Diabetes panel 11/27/20 11/28/20 Range/Units 18:37 08:52 Sodium 136 L 137 (137-145) mmol/L Potassium 3.9 3.6 (3.5-5.1) mmol/L Chloride 104 108 H (98-107) mmol/L Carbon Dioxide 21 L 24 (22-30) mmol/L BUN 12 9 (7-17) mg/dL Creatinine 0.67 0.60 (0.52-1.04) mg/dL Glucose 97 84 (74-99) mg/dL Calcium 9.0 8.3 L (8.4-10.2) mg/dL AST 35 87 H (14-36) U/L ALT 22 77 H (4-34) U/L Alkaline Phosphatase 49 41 (38-126) U/L Total Protein 6.8 5.8 L (6.3-8.2) g/dL Albumin 4.3 3.4 L (3.5-5.0) g/dL Calcium panel 11/27/20 11/28/20 Range/Units 18:37 08:52 Calcium 9.0 8.3 L (8.4-10.2) mg/dL Albumin 4.3 3.4 L (3.5-5.0) g/dL Pituitary panel 11/27/20 11/28/20 Range/Units 18:37 08:52 Sodium 136 L 137 (137-145) mmol/L Potassium 3.9 3.6 (3.5-5.1) mmol/L Chloride 104 108 H (98-107) mmol/L Carbon Dioxide 21 L 24 (22-30) mmol/L BUN 12 9 (7-17) mg/dL Creatinine 0.67 0.60 (0.52-1.04) mg/dL Glucose 97 84 (74-99) mg/dL Calcium 9.0 8.3 L (8.4-10.2) mg/dL Adrenal panel 11/27/20 11/28/20 Range/Units 18:37 08:52 Sodium 136 L 137 (137-145) mmol/L Potassium 3.9 3.6 (3.5-5.1) mmol/L Chloride 104 108 H (98-107) mmol/L Carbon Dioxide 21 L 24 (22-30) mmol/L BUN 12 9 (7-17) mg/dL Creatinine 0.67 0.60 (0.52-1.04) mg/dL Glucose 97 84 (74-99) mg/dL Calcium 9.0 8.3 L (8.4-10.2) mg/dL Total Bilirubin 0.3 <0.1 L (0.2-1.3) mg/dL AST 35 87 H (14-36) U/L ALT 22 77 H (4-34) U/L Alkaline Phosphatase 49 41 (38-126) U/L Total Protein 6.8 5.8 L (6.3-8.2) g/dL Albumin 4.3 3.4 L (3.5-5.0) g/dL
--- NOTE | 2020-11-28 13:53 | US ---
EXAMINATION TYPE: US abdomen complete DATE OF EXAM: 11/28/2020 COMPARISON: CT 11/27/2020 CLINICAL HISTORY: abdominal pain. abdominal pain EXAM MEASUREMENTS: Liver Length: 14.4 cm Gallbladder Wall: 0.4 cm CBD: 0.7 cm Spleen: 9.9 cm Right Kidney: 12.0 x 4.9 x 5.4 cm Left Kidney: 11.5 x 6.1 x 4.8 cm Pancreas: Obscured by bowel gas Liver: wnl Gallbladder: sludge and possible small stones, thickened GB wall Evidence for sonographic Tyson's sign: no CBD: slightly dilated Spleen: wnl Right Kidney: no evidence of hydronephrosis Left Kidney: no evidence of hydronephrosis Upper IVC: wnl Abd Aorta: wnl IMPRESSION: 1. There is gallbladder sludge with probable tiny gallstones and thickened gallbladder wall. The comm on bile duct is also dilated at 7 mm. Correlate for cholecystitis. Distal CBD stone or obstruction in the differential diagnosis.
[2020-11-28] MEDS ORDERED: PANTOPRAZOLE 40 MG TABLET PO SCH (14:00)
[2020-11-28] MEDS ORDERED: HEPARIN SODIUM,PORCINE/PF 5,000 UNIT/0.5 ML SYRINGE SQ SCH (21:00)
--- NOTE | 2020-12-05 23:09 | P.HPIM ---
History of Present Illness H&P Date: 11/28/20 Chief Complaint: Abdominal pain. Patient is a 40-year-old female with a known history of breast cancer status post bilateral mastectomy in 2012 and light tobacco smoker presents to ER with complaints of abdominal pain. Patient was seen in the ER yesterday for abdominal pain along with nausea and multiple episodes of nonbilious vomiting. Patient was treated with symptomatic management and was discharged home. Patient again started having symptoms upon waking up in the morning and is also complaining of abdominal pain. Due to increased severity of the pain patient pr esented to the ER. Pain is mainly in the right lower quadrant and in the right groin area. No fever no chills. He denies any bowel movement. No chest pain or shortness breath. Patient states that he did have diarrhea day before yesterday and since then she can have involvement. CT of the abdomen pelvis showed distended large bowel with fluid levels consistent with large bowel ileus and diarrhea. No free air. Ultrasound right upper quadrant showed gallbladder sludge with probable tiny gallstones thickened gallbladder wall. Common bile duct is also dilated 7 mm correlate for cholecystitis. Distal CBD stone or obstruction in the differential diagnosis. Laboratory showed AST 87 ALT 77 and alk phos 41 and a bilirubin level is less than 0.1. WBC 6.7 hemoglobin 12.7 platelets 152 Review of Systems Constitutional: Patient denies any fever or chills . No generalized weakness or weight loss. Abdomen: Patient does have abdominal pain and nausea and vomiting. No diarrhea.. Cardiovascular: Patient denies any chest pain or short of breath no palpitations. Respiratory: patient denied any cough or sputum production. No shortness of breath Neurologic: Patient denied any numbness or tingling headache. Musculoskeletal: Patient denies any complaints of joint swelling or deformity. Skin: Negative Psychiatric: Negative Endocrine: No heat or cold intolerance. No recent weight gain. Genitourinary: No dysuria or hematuria. All other 14 point ROS negative except the above Past Medical History Past Medical History: Cancer Additional Past Medical History / Comment(s): breast ca in past with bilateral mastectomy 02/2013 History of Any Multi-Drug Resistant Organisms: None Reported Past Surgical History: Breast Surgery Additional Past Surgical History / Comment(s): penny mastectomy with reconstruction 02/2013; scar revisions 03/2013; D&C approx 09/2008 or 2009; Past Anesthesia/Blood Transfusion Reactions: No Reported Reaction Past Psychological History: No Psychological Hx Reported Smoking Status: Light tobacco smoker Past Alcohol Use History: Rare Past Drug Use History: None Reported - Past Family History Father Family Medical History: Coronary Artery Disease (CAD), Hypertension Medications and Allergies Home Medications Medication Instructions Recorded Confirmed Type Acetaminophen Tab [Tylenol] 650 mg PO Q6H #30 tab 11/29/20 Rx Docusate [Colace] 100 mg PO BID #20 capsule 11/29/20 Rx Ibuprofen [Motrin] 600 mg PO Q6HR PRN #40 tab 11/29/20 Rx oxyCODONE HCL [OxyIR] 5 mg PO Q6H PRN 3 Days #10 tab 11/29/20 Rx Allergies Allergy/AdvReac Type Severity Reaction Status Date / Time No Known Allergies Allergy Verified 11/29/20 10:50 Physical Exam Vitals: Vital Signs Temp Pulse Resp BP Pulse Ox 11/28/20 07:23 98.0 F 78 16 103/76 99 11/28/20 04:35 98.1 F 78 20 106/61 98 11/28/20 03:00 74 18 96/49 98 11/28/20 00:15 99.3 F 78 18 96/49 97 11/27/20 22:03 100.8 F H 78 18 102/52 96 11/27/20 20:20 77 18 107/62 99 11/27/20 17:58 98.7 F 63 20 96/55 100 Intake and Output 11/27/20 11/28/20 11/28/20 22:59 06:59 14:59 Other: Weight 60.328 kg PHYSICAL EXAMINATION: Patient is lying in the bed comfortably, no acute distress, awake alert and oriented.. HEENT: Normocephalic. Neck is supple. Pupils reactive. Nostrils clear. Oral cavity is moist. Ears reveal no drainage. Neck reveals no JVD, carotid bruits, or thyromegaly. CHEST EXAMINATION: Trachea is central. Symmetrical expansion. Lung bhakta clear to auscultation and percussion. CARDIAC: Normal S1, S2 with no gallops. No murmurs ABDOMEN: Soft.Mild right lower quadrant tenderness., Bowel sounds normal. No organomegaly. No abdominal bruits. Extremities: reveal no edema. No clubbing or cyanosis Neurologically awake, alert, oriented x3 with well-coordinated movements. No focal deficits noted Skin: No rash or skin lesions. Psychiatric: Coperative. Nonsuicidal Musculoskeletal: No joint swelling or deformity. Normal range of motion. Results CBC & Chem 7: 11/28/20 08:52 11/28/20 08:52 Labs: Abnormal Lab Results - Last 24 Hours (Table) 11/27/20 11/27/20 11/27/20 Range/Units 18:37 18:37 18:44 Lymphocytes # 0.7 L (1.0-4.8) k/uL Sodium 136 L (137-145) mmol/L Chloride (98-107) mmol/L Carbon Dioxide 21 L (22-30) mmol/L Calcium (8.4-10.2) mg/dL Total Bilirubin (0.2-1.3) mg/dL AST (14-36) U/L ALT (4-34) U/L Total Protein (6.3-8.2) g/dL Albumin (3.5-5.0) g/dL Urine Appearance Cloudy H (Clear) Urine Protein 1+ H (Negative) Urine Ketones 2+ H (Negative) Urine Blood Moderate H (Negative) Urine RBC 18 H (0-5) /hpf Urine Mucus Many H (None) /hpf 11/28/20 11/28/20 Range/Units 08:52 08:52 Lymphocytes # 0.8 L (1.0-4.8) k/uL Sodium (137-145) mmol/L Chloride 108 H (98-107) mmol/L Carbon Dioxide (22-30) mmol/L Calcium 8.3 L (8.4-10.2) mg/dL Total Bilirubin <0.1 L (0.2-1.3) mg/dL AST 87 H (14-36) U/L ALT 77 H (4-34) U/L Total Protein 5.8 L (6.3-8.2) g/dL Albumin 3.4 L (3.5-5.0) g/dL Urine Appearance (Clear) Urine Protein (Negative) Urine Ketones (Negative) Urine Blood (Negative) Urine RBC (0-5) /hpf Urine Mucus (None) /hpf Thrombosis Risk Factor Assmnt - DVT/VTE Prophylaxis DVT/VTE Prophylaxis: Pharmacologic Prophylaxis ordered Assessment and Plan Assessment: Right lower quadrant abdominal pain secondary to Large bowel ileus. Gallbladder sludge with possible acute cholecystitis Gallstones 7 mm dilatation of CBD possible choledocholithiasis. History of breast cancer DVT prophylaxis heparin subcu Plan: Patient will be continued on IV hydration nothing by mouth. General surgery was consulted and recommends conservative management at this time. Symptomatic management for nausea and vomiting. General surgery recommends cholecystectomy. Patient would like to be discharged home and wants to follow-up as an outpatient. Advance diet as tolerated once pain improves.
--- NOTE | 2020-12-15 10:21 | P.DS ---
Providers Date of admission: 11/27/20 21:10 Expected date of discharge: 11/28/20 Attending physician: Rui Nava MD Consults: 11/27/20 20:54 Consult Physician Routine Consulting Provider: Sterling Cheng Consult Reason/Comments: Large bowel ileus Do you want consulting provider notified?: Yes Primary care physician: [facility] Course: Discharge diagnosis Right lower quadrant abdominal pain secondary to Large bowel ileus. improved. Gallbladder sludge with possible acute cholecystitis Gallstones 7 mm dilatation of CBD possible choledocholithiasis. History of breast cancer DVT prophylaxis heparin subcu Hospital course Patient is a 40-year-old female with a known history of breast cancer status post bilateral mastectomy in 2012 and light tobacco smoker presents to ER with complaints of abdominal pain. Patient was seen in the ER yesterday for abdominal pain along with nausea and multiple episodes of nonbilious vomiting. Patient was treated with symptomatic management and was discharged home. Patient again started having symptoms upon waking up in the morning and is also complaining of abdominal pain. Due to increased severity of the pain patient presented to the ER. Pain is mainly in the right lower quadrant and in the right groin area. No fever no chills. He denies any bowel movement. No chest pain or shortness breath. Patient states that he did have diarrhea day before yesterday and since then she can have involvement. CT of the abdomen pelvis showed distended large bowel with fluid levels consistent with large bowel ileus and diarrhea. No free air. Ultrasound right upper quadrant showed gallbladder sludge with probable tiny gallstones thickened gallbladder wall. Common bile duct is also dilated 7 mm correlate for cholecystitis. Distal CBD stone or obstruction in the differential diagnosis. Laboratory showed AST 87 ALT 77 and alk phos 41 and a bilirubin level is less than 0.1. WBC 6.7 hemoglobin 12.7 platelets 152 Patient was continued on IV hydration nothing by mouth. General surgery was consulted and recommends conservative management at this time. Symptomatic management for nausea and vomiting. Patient did improve clinically. Able to tolerate oral diet now. No complaints or diarrhea. Ultrasound gallbladder showed gallstones with gallbladder sludge. General surgery recommends cholecystectomy.Patient will need to be follow-up with surgery in the next 1 to 2 days. Otherwise patient asymptomatic currently and would like to be discharged home. Discharge physical examination was done and vitals reviewed. Patient Condition at Discharge: Fair Plan - Discharge Summary New Discharge Prescriptions: No Action oxyCODONE HCL [OxyIR] 5 mg PO Q6H PRN 3 Days #10 tab PRN Reason: Pain Acetaminophen Tab [Tylenol] 650 mg PO Q6H #30 tab Docusate [Colace] 100 mg PO BID #20 capsule Ibuprofen [Motrin] 600 mg PO Q6HR PRN #40 tab PRN Reason: Pain Discharge Medication List Acetaminophen Tab [Tylenol] 650 mg PO Q6H #30 tab 11/29/20 [Rx] Docusate [Colace] 100 mg PO BID #20 capsule 11/29/20 [Rx] Ibuprofen [Motrin] 600 mg PO Q6HR PRN #40 tab 11/29/20 [Rx] oxyCODONE HCL [OxyIR] 5 mg PO Q6H PRN 3 Days #10 tab 11/29/20 [Rx] Follow up Appointment(s)/Referral(s): Hardik Holland DO [Primary Care Provider] - 1-2 days Patient Instructions/Handouts: Cholecystitis (ED) Activity/Diet/Wound Care/Special Instructions: Nothing to eat or drink after midnight. You will get a call telling you when to arrive at the hospital tomorrow. Discharge Disposition: HOME SELF-CARE
== END 2020-11-28 17:10 | disposition home or self-care (01) | DRG 390 ==
LOC: EC 17:56 → 4SSUR 21:10
PROVIDERS: ADMIT Internal Medicine; ATTEND Internal Medicine
DX: K56.7 Ileus, unspecified (principal); Z90.13 Acquired absence of bilateral breasts and nipples; Z85.3 Personal history of malignant neoplasm of breast; Z20.822 Contact with and (suspected) exposure to COVID-19; F17.200 Nicotine dependence, unspecified, uncomplicated; K80.20 Calculus of gallbladder without cholecystitis without obstruction; K82.8 Other specified diseases of gallbladder; K52.9 Noninfective gastroenteritis and colitis, unspecified
CPT/HCPCS: 36415; 74177; 76700; 80053; 81001; 83605; 83690; 83735; 84703; 85025; 87040; 87635; 93005; 96361; 96374; 96375; 99285

== ENCOUNTER 2020-11-29 10:35 | Day surgery (SDC) | payer OTHER ==
--- NOTE | 2020-11-29 10:46 | P.GSHP ---
History of Present Illness H&P Date: 11/29/20 Chief Complaint: Cholelithiasis This a 40-year-old female who had a recent hospital history. Patient's found have cholelithiasis. She presents today for laparoscopic cholecystectomy. Past Medical History Past Medical History: Cancer Additional Past Medical History / Comment(s): breast ca in past with bilateral mastectomy 02/2013 History of Any Multi-Drug Resistant Organisms: None Reported Past Surgical History: Breast Surgery Additional Past Surgical History / Comment(s): penny mastectomy with reconstruction 02/2013; scar revisions 03/2013; D&C approx 09/2008 or 2009; Past Anesthesia/Blood Transfusion Reactions: No Reported Reaction Past Psychological History: No Psychological Hx Reported Smoking Status: Light tobacco smoker Past Alcohol Use History: Rare Past Drug Use History: None Reported - Past Family History Father Family Medical History: Coronary Artery Disease (CAD), Hypertension Medications and Allergies Home Medications Medication Instructions Recorded Confirmed Type No Known Home Medications 04/07/18 11/27/20 History Allergies Allergy/AdvReac Type Severity Reaction Status Date / Time No Known Allergies Allergy Verified 11/27/20 18:41 Surgical - Exam - General well developed, well nourished, no distress - Eyes PERRL - ENT normal pinna - Neck no masses - Respiratory normal expansion - Cardiovascular Rhythm: regular - Abdomen Abdomen: soft, non tender Assessment and Plan Assessment: Lithiasis. We'll perform laparoscopic cholecystectomy
[2020-11-29 11:01] VITALS: RESP 16
[2020-11-29] MEDS ORDERED: LIDOCAINE 1% (10MG/ML) FOR IV START INTRADERMA ONE (11:03)
[2020-11-29] MEDS ORDERED: LACTATED RINGERS 1,000 ML IV ONE (11:03)
[2020-11-29] MEDS ORDERED: ONDANSETRON 4 MG/2 ML VIAL ONE (11:05)
[2020-11-29] MEDS ORDERED: HEPARIN SODIUM,PORCINE/PF 5,000 UNIT/0.5 ML SYRINGE SQ ONE (11:05)
[2020-11-29] MEDS ORDERED: DEXAMETHASONE SOD PHOSPHATE 4 MG/ML 1 ML VIAL IV ONE (11:10)
[2020-11-29] MEDS ORDERED: ePHEDrine SULFATE/0.9% NACL/PF 50 MG/5 ML SYRINGE IV ONE (12:34)
[2020-11-29] MEDS ORDERED: NEOSTIGMINE 1 MG/ML 10 ML VIAL ONE (12:34)
[2020-11-29] MEDS ORDERED: fentaNYL (PF) 50 MCG/ML 2 ML AMP ONE (12:34)
[2020-11-29] MEDS ORDERED: HYDROmorphone (PF) 1 MG/ML ONE (12:34)
[2020-11-29] MEDS ORDERED: ROCURONIUM 10 MG/ML (5 ML VIAL) IV ONE (12:34)
[2020-11-29] MEDS ORDERED: KETOROLAC 15 MG/ML 1 ML VIAL ONE (12:34)
[2020-11-29] MEDS ORDERED: SUCCINYLCHOLINE CHLORIDE 100 MG/5 ML SYR IV ONE (12:34)
[2020-11-29] MEDS ORDERED: MIDAZOLAM 2 MG/2 ML VIAL ONE (12:34)
[2020-11-29] MEDS ORDERED: GLYCOPYRROLATE 0.2 MG/ML 2 ML VIAL ONE (12:34)
[2020-11-29] MEDS ORDERED: PROPOFOL 10 MG/ML 20 ML VIAL IV ONE (12:34)
[2020-11-29] MEDS ORDERED: LIDOCAINE 1% INJ 10MG/ML (20 ML MDV) ONE (12:34)
[2020-11-29] MEDS ORDERED: BUPIVACAINE (PF) 0.5% 30 ML VIAL SQ ONE (13:08)
--- NOTE | 2020-11-29 13:22 | P.OP ---
Date of Procedure: 11/29/20 Preoperative Diagnosis: Cholelithiasis Postoperative Diagnosis: Cholelithiasis Procedure(s) Performed: Laparoscopic cholecystectomy Anesthesia: JACOBO Surgeon: Sterling Cheng Estimated Blood Loss (ml): 5 Pathology: other (All bladder gallbladder) Condition: stable Disposition: PACU Description of Procedure: The patient was placed on the operating table. The patient received a general endotracheal tube anesthesia. The patients abdomen was prepped and draped in the usual sterile fashion. Through an infraumbilical stab incision, the fascia of the anterior abdominal wall was grasped with a pair of Kochers and then the Veress needle was placed in the peritoneal cavity. Position of the Veress needle was confirmed with positive drop test. The abdomen was then insufflated. After adequate insufflation, the 10 mm trocar was placed in the peritoneal cavity. Following this the laparoscope was placed in the peritoneal cavity. The patient was placed in the head-up, right side up position and then a 5 mm trocar was placed in the right lateral and right subcostal position under direct visualization. A 8 mm trocar was placed in the epigastric position. The gallbladder was grasped in the fundus and infundibulum. Traction on the gallbladder was placed in the lateral and the cephalad positions. The triangle of Calot was visualized.. The cystic duct was bluntly dissected until the union of the cystic duct and common bile duct was seen. A critical view of safety was achieved. The cystic duct was then divided and sealed with the Harmonic scissors. A PDS Endoloop was then placed throughout the cystic duct stump. The cystic artery divided and sealed with the Harmonic scissors. The gallbladder was then removed from the liver bed using Harmonic scissors. The gallbladder was then extracted through the epigastric port site. Operative field was checked for any bleeding spots and Harmonic scissors was used to coagulate the liver bed. The abdomen was irrigated. The trocars were removed. The skin was closed using interrupted 3-0 Vicryl suture. Dermabond dressing were applied. The patient tolerated the procedure well.
[2020-11-29 13:27] VITALS: TEMP 98
[2020-11-29] MEDS ORDERED: HYDROmorphone 0.5 MG/0.5 ML SYRINGE IVP ONE (13:55)
[2020-11-29 15:06] VITALS: BP 99/59; PULSE 59
== END 2020-11-29 15:36 | disposition home or self-care (01) ==
LOC: OR 10:35
PROVIDERS: ATTEND Surgery
DX: K80.10 Calculus of gallbladder with chronic cholecystitis without obstruction (principal); Z85.3 Personal history of malignant neoplasm of breast; F17.210 Nicotine dependence, cigarettes, uncomplicated
CPT/HCPCS: 81025; 88304; 47562; J2250; J1100; J2710; J0690; J2405; J2001; J3010; J1170 ×2; J1885; J0330; J2704; J1644

== ENCOUNTER → 2021-12-22 | Outpatient (CLI) | payer BC ==
[2021-12-22 09:20] VITALS: BP 114/61; PULSE 76; RESP 18; TEMP 98.1
--- NOTE | 2021-12-22 09:42 | P.PN ---
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 The size of the ductal carcinoma in situ was over 5 cm and was 0.5 cm from the posterior margin. The left breast was a simple mastectomy with mild fibrocystic changes. [place] node biopsy was also performed which was negative for malignancy. She had bilateral subpectoral expanders placed at the time of surgery by DR. Bearden. She had a scar revision following this and then had the expanders exchanged for the permanent implants in July 2013. She had done well from that time until last year when she noted that the right breast implant was feeling heavy and bruised. She denied any trauma to that area. It is not bothering her at this time. She is going to see Dr. Bearden. She is not concerned about any lumps, masses, or nodules in her chest wall. She did not have any chemo, hormonal therapy, radiation. She states her original tumor was ER/OK negative but HER-2 positive. She has not followed with medical radiation oncology. He has not followed with Dr. Bearden since she has finished her reconstruction. She had genetic testing done and she was negative for BRCA 1. Caffiene: 5 cups coffee/day nicotine: 1 pack last 4 days chocolate: none hormones: Periods are normal; does not use hormones at this time Family history: paternal grandmother: breast cancer maternal grandmother: breast cancer Hormonal History: menarche: 14 , M1, breast fed: no, age at first : 28 periods regular BCP: used them in her 20's, 5 years Surgical history: Bilateral mastectomy with reconstruction D&C Scar revision of the mastectomy sites gallbladder Medical History: none Social History: smoke: 19 years 1pack/4day now used to smoke 2 PPD alcohol: rare drugs: none - Constitutional Constitutional: Denies chills, Denies fever - EENT Eyes: denies blurred vision, denies pain Ears: deny: decreased hearing, tinnitus Ears, nose, mouth and throat: Denies headache, Denies sore throat - Breasts Breasts: bilateral: as per HPI - Cardiovascular Cardiovascular: Denies chest pain, Denies shortness of breath - Respiratory Respiratory: Denies cough - Gastrointestinal Gastrointestinal: Denies abdominal pain, Denies diarrhea, Denies nausea, Denies vomiting - Genitourinary (Female) Genitourinary: Denies dysuria, Denies hematuria - Menstruation Menstruation: Reports period normal - Musculoskeletal Musculoskeletal: Denies myalgias - Integumentary Integumentary: Denies pruritus, Denies rash - Neurological Neurological: Denies numbness, Denies weakness - Psychiatric Psychiatric: Denies anxiety, Denies depression - Endocrine Endocrine: Denies fatigue, Denies weight change - Hematologic/Lymphatic Comment: none - Allergic/Immunologic Allergic/Immunologic: Reports seasonal allergies Objective - Vital Signs Vital signs: Vital Signs Temp 98.1 F 12/22/21 09:18 Pulse 76 12/22/21 09:18 Resp 18 12/22/21 09:18 BP 114/61 12/22/21 09:18 Pulse Ox 100 12/22/21 09:18 FiO2 Intake & Output 12/21/21 12/22/21 12/22/21 18:59 06:59 18:59 Weight 62.142 kg - Exam BMI: 20.8 - Constitutional General appearance: Present: cooperative - EENT Eyes: Present: EOMI ENT: Present: hearing grossly normal - Neck Neck: Present: normal ROM - Respiratory Respiratory: bilateral: CTA - Cardiovascular Rhythm: regular Heart sounds: normal: S1, S2 - Gastrointestinal General gastrointestinal: Present: soft - Integumentary Integumentary: Present: normal turgor - Musculoskeletal Musculoskeletal: Present: gait normal - Psychiatric Psychiatric: Present: A&O x's 3, appropriate affect, intact judgment & insight - Additional findings Additional findings: Breast Exam: BRA: medium sports bra inspection: well healed scar bilateral palpation: right chest wall: Chest wall no evidence of recurrent disease Right axilla: No adenopathy of concern Left chest wall: No evidence of recurrent disease Left axilla: No adenopathy of concern Assessment and Plan Assessment: Chief: Patient status post bilateral mastectomy with reconstruction for DCIS right breast Plan: Continue surveillance patient is going to follow up with Dr. Bearden Follow-up. One year Follow-up sooner any questions or concerns CC: Dr. Holland
== END | disposition home or self-care (01) ==
LOC: WWCWWP 09:03
PROVIDERS: ATTEND Surgery
DX: Z53.9 Procedure and treatment not carried out, unspecified reason (principal)

== ENCOUNTER 2022-01-03 22:16 | Emergency (ER) | payer BC ==
[2022-01-03] MEDS ORDERED: SODIUM CHLORIDE 0.9% 500 ML 500 ML IV STA (23:49)
--- NOTE | 2022-01-04 00:09 | ED ---
Syncope HPI - General Chief Complaint: Syncope Stated Complaint: Syncope, Abdominal pain, Back Pain Time Seen by Provider: 01/03/22 23:35 Source: patient, family Mode of arrival: ambulatory Limitations: no limitations - History of Present Illness Initial Comments: This patient is a 41-year-old woman who presents with complaint that she had a fainting spell. Patient states that she had been at home and developed severe right flank cramp. She states that the pain came on and felt up until it was very severe. She then became sweaty and passed out. She was unconscious for a few seconds and then regained consciousness and was rapidly back at baseline. The episode with the pain lasts approximately 15 minutes and has subsided. She did not have any chest pain, dyspnea, palpitations. MD Complaint: loss of consciousness -: hour(s) Prodromal Symptoms: other -: second(s) Witnessed: yes - by bystander Injuries Sustained Associated with Event: None Current Symptoms: back to baseline Context: related to severe pain Treatments Prior to Arrival: none - Related Data On Hormonal Control: No Previous Rx's Medication Instructions Recorded Acetaminophen Tab [Tylenol] 650 mg PO Q6H #30 tab 11/29/20 Ibuprofen [Motrin] 600 mg PO Q6HR PRN #40 tab 11/29/20 Allergies Allergy/AdvReac Type Severity Reaction Status Date / Time No Known Allergies Allergy Verified 01/03/22 22:20 Review of Systems ROS Statement: Those systems with pertinent positive or pertinent negative responses have been documented in the HPI. ROS Other: All systems not noted in ROS Statement are negative. Constitutional: Denies: fever, chills Respiratory: Denies: cough, dyspnea Cardiovascular: Reports: syncope. Denies: chest pain, palpitations Gastrointestinal: Reports: as per HPI, abdominal pain, nausea. Denies: vomiting, diarrhea, constipation Genitourinary: Denies: dysuria, frequency, hematuria Musculoskeletal: Denies: back pain Skin: Denies: rash Neurological: Denies: headache, weakness, numbness Past Medical History Past Medical History: Cancer Additional Past Medical History / Comment(s): breast ca in past with bilateral mastectomy 02/2013 History of Any Multi-Drug Resistant Organisms: None Reported Past Surgical History: Breast Surgery Additional Past Surgical History / Comment(s): penny mastectomy with reconstru ction 02/2013; scar revisions 03/2013; D&C approx 09/2008 or 2009; Past Anesthesia/Blood Transfusion Reactions: No Reported Reaction Past Psychological History: No Psychological Hx Reported Smoking Status: Current every day smoker, Light tobacco smoker Past Alcohol Use History: Rare Past Drug Use History: None Reported - Past Family History Father Family Medical History: Coronary Artery Disease (CAD), Hypertension General Exam Limitations: no limitations General appearance: alert, in no apparent distress Head exam: Present: atraumatic, normocephalic Eye exam: Present: normal appearance, PERRL, EOMI. Absent: scleral icterus, conjunctival injection Neck exam: Present: normal inspection Respiratory exam: Present: normal lung sounds bilaterally. Absent: respiratory distress, wheezes, rales, rhonchi, stridor Cardiovascular Exam: Present: regular rate, normal rhythm, normal heart sounds. Absent: systolic murmur, diastolic murmur, rubs, gallop GI/Abdominal exam: Present: soft. Absent: distended, tenderness, guarding, rebound, rigid, mass Extremities exam: Present: normal inspection, normal capillary refill. Absent: pedal edema, calf tenderness Back exam: Present: normal inspection. Absent: CVA tenderness (R), CVA tenderness (L) Neurological exam: Present: alert. Absent: motor sensory deficit Skin exam: Present: warm, dry, intact, normal color. Absent: rash Course Vital Signs 01/03/22 01/04/22 01/04/22 22:17 00:05 01:51 Temperature 97.7 F Pulse Rate 71 65 73 Respiratory 20 18 15 Rate Blood Pressure 116/71 111/65 101/59 O2 Sat by Pulse 100 100 97 Oximetry EKG Findings - EKG Results: EKG: interpreted by MUNA, sinus rhythm (Rate 65 bpm), normal axis, normal QRS, normal ST/T, no acute changes Medical Decision Making - Lab Data Result diagrams: 01/04/22 00:06 01/04/22 00:06 Lab Results 01/04/22 01/04/22 01/04/22 Range/Units 00:06 00:06 00:06 WBC 8.6 (3.8-10.6) k/uL RBC 4.01 (3.80-5.40) m/uL Hgb 12.8 (11.4-16.0) gm/dL Hct 38.3 (34.0-46.0) % MCV 95.5 (80.0-100.0) fL MCH 31.9 (25.0-35.0) pg MCHC 33.4 (31.0-37.0) g/dL RDW 11.9 (11.5-15.5) % Plt Count 217 (150-450) k/uL MPV 7.2 Neutrophils % 71 % Lymphocytes % 17 % Monocytes % 6 % Eosinophils % 3 % Basophils % 1 % Neutrophils # 6.1 (1.3-7.7) k/uL Lymphocytes # 1.5 (1.0-4.8) k/uL Monocytes # 0.5 (0-1.0) k/uL Eosinophils # 0.3 (0-0.7) k/uL Basophils # 0.1 (0-0.2) k/uL D-Dimer (<0.60) mg/L FEU Sodium 137 (137-145) mmol/L Potassium 3.8 (3.5-5.1) mmol/L Chloride 107 (98-107) mmol/L Carbon Dioxide 23 (22-30) mmol/L Anion Gap 7 mmol/L BUN 15 (7-17) mg/dL Creatinine 0.64 (0.52-1.04) mg/dL Est GFR (CKD-EPI)AfAm >90 (>60 ml/min/1.73 sqM) Est GFR (CKD-EPI)NonAf >90 (>60 ml/min/1.73 sqM) Glucose 125 H (74-99) mg/dL Calcium 9.2 (8.4-10.2) mg/dL Total Bilirubin 0.2 (0.2-1.3) mg/dL AST 22 (14-36) U/L ALT 14 (4-34) U/L Alkaline Phosphatase 34 L (38-126) U/L Troponin I <0.012 (0.000-0.034) ng/mL Total Protein 6.7 (6.3-8.2) g/dL Albumin 4.2 (3.5-5.0) g/dL Urine Color Urine Appearance (Clear) Urine pH (5.0-8.0) Ur Specific [place] (1.001-1.035) Urine Protein (Negative) Urine Glucose (UA) (Negative) Urine Ketones (Negative) Urine Blood (Negative) Urine Nitrite (Negative) Urine Bilirubin (Negative) Urine Urobilinogen (<2.0) mg/dL Ur Leukocyte Esterase (Negative) Urine HCG, Qual (Not Detectd) 01/04/22 01/04/22 01/04/22 Range/Units 00:11 00:11 00:15 WBC (3.8-10.6) k/uL RBC (3.80-5.40) m/uL Hgb (11.4-16.0) gm/dL Hct (34.0-46.0) % MCV (80.0-100.0) fL MCH (25.0-35.0) pg MCHC (31.0-37.0) g/dL RDW (11.5-15.5) % Plt Count (150-450) k/uL MPV Neutrophils % % Lymphocytes % % Monocytes % % Eosinophils % % Basophils % % Neutrophils # (1.3-7.7) k/uL Lymphocytes # (1.0-4.8) k/uL Monocytes # (0-1.0) k/uL Eosinophils # (0-0.7) k/uL Basophils # (0-0.2) k/uL D-Dimer 0.32 (<0.60) mg/L FEU Sodium (137-145) mmol/L Potassium (3.5-5.1) mmol/L Chloride (98-107) mmol/L Carbon Dioxide (22-30) mmol/L Anion Gap mmol/L BUN (7-17) mg/dL Creatinine (0.52-1.04) mg/dL Est GFR (CKD-EPI)AfAm (>60 ml/min/1.73 sqM) Est GFR (CKD-EPI)NonAf (>60 ml/min/1.73 sqM) Glucose (74-99) mg/dL Calcium (8.4-10.2) mg/dL Total Bilirubin (0.2-1.3) mg/dL AST (14-36) U/L ALT (4-34) U/L Alkaline Phosphatase (38-126) U/L Troponin I (0.000-0.034) ng/mL Total Protein (6.3-8.2) g/dL Albumin (3.5-5.0) g/dL Urine Color Yellow Urine Appearance Clear (Clear) Urine pH 6.0 (5.0-8.0) Ur Specific [place] 1.009 (1.001-1.035) Urine Protein Negative (Negative) Urine Glucose (UA) Negative (Negative) Urine Ketones Negative (Negative) Urine Blood Negative (Negative) Urine Nitrite Negative (Negative) Urine Bilirubin Negative (Negative) Urine Urobilinogen <2.0 (<2.0) mg/dL Ur Leukocyte Esterase Negative (Negative) Urine HCG, Qual Not Detected (Not Detectd) Disposition Clinical Impression: Syncope Disposition: HOME SELF-CARE Condition: Good Instructions (If sedation given, give patient instructions): Syncope (ED) Is patient prescribed a controlled substance at d/c from ED?: No Referrals: Hardik Holland DO [Primary Care Provider] - 1-2 days
[2022-01-04 00:17] LABS: Basophils # (A) 0.1 k/uL (0-0.2); Basophils % (A) 1 %; Eosinophils # (A) 0.3 k/uL (0-0.7); Eosinophils % (A) 3 %; HCT 38.3 % (34.0-46.0); HGB 12.8 gm/dL (11.4-16.0); Lymphocytes # (A) 1.5 k/uL (1.0-4.8); Lymphocytes % (A) 17 %; MCH 31.9 pg (25.0-35.0); MCHC 33.4 g/dL (31.0-37.0); MCV 95.5 fL (80.0-100.0); Mean Platelet Volume 7.2; Monocytes # (A) 0.5 k/uL (0-1.0); Monocytes % (A) 6 %; Neutrophils # (A) 6.1 k/uL (1.3-7.7); Neutrophils % (A) 71 %; Platelet Count 217 k/uL (150-450); RBC 4.01 m/uL (3.80-5.40); RDW 11.9 % (11.5-15.5); WBC 8.6 k/uL (3.8-10.6)
[2022-01-04 00:31] LABS: ALT 14 U/L (4-34); AST 22 U/L (14-36); African American GFR (CKD) >90 (>60 ml/min/1.73 sqM); Albumin 4.2 g/dL (3.5-5.0); Alkaline Phosphatase 34 U/L (38-126); Anion Gap 7 mmol/L; Blood Urea Nitrogen 15 mg/dL (7-17); Calcium 9.2 mg/dL (8.4-10.2); Carbon Dioxide 23 mmol/L (22-30); Chloride 107 mmol/L (98-107); Glucose 125 mg/dL (74-99); Non-African American GFR(CKD) >90 (>60 ml/min/1.73 sqM); Potassium 3.8 mmol/L (3.5-5.1); Sodium 137 mmol/L (137-145); Total Bilirubin 0.2 mg/dL (0.2-1.3); Total Protein 6.7 g/dL (6.3-8.2)
[2022-01-04 00:51] LABS: Appearance,Urine Clear (Clear); Bilirubin,Urine Negative (Negative); Blood,Urine Negative (Negative); Color,Urine Yellow; Glucose,Urine (UA) Negative (Negative); Ketones,Urine Negative (Negative); Leukocyte Esterase,Urine Negative (Negative); Nitrite,Urine Negative (Negative); Protein,Urine Negative (Negative); Specific Gravity,Urine 1.009 (1.001-1.035); Urobilinogen,Urine <2.0 mg/dL (<2.0)
--- NOTE | 2022-01-04 01:37 | XR ---
EXAMINATION TYPE: XR chest 1V portable DATE OF EXAM: 01/04/2022 COMPARISON: 04/06/2018 HISTORY: Syncope TECHNIQUE: Single view FINDINGS: There is some mild coarsening of interstitial markings. No pleural effusion. There are no h ilar masses. Bony thorax is intact. IMPRESSION: Mild increased interstitial density in the lungs compared to old exam. No heart failure.
[2022-01-04 03:28] VITALS: BP 109/66; PULSE 70; RESP 19; TEMP 97.5
== END 2022-01-04 03:27 | disposition home or self-care (01) ==
LOC: EC 22:16
DX: R55 Syncope and collapse (principal); R10.9 Unspecified abdominal pain; R11.0 Nausea; F17.200 Nicotine dependence, unspecified, uncomplicated
CPT/HCPCS: 36415; 71045; 80053; 81003; 81025; 84484; 85025; 85379; 93005; 99284

== ENCOUNTER 2022-07-15 03:53 | Inpatient (IN) | payer BC ==
[2022-07-15 03:58] LABS: Glucose,Whole Blood 122 mg/dL (70-110)
[2022-07-15] MEDS ORDERED: SODIUM CHLORIDE 0.9% 500 ML 500 ML IV STA ×2 (04:14→04:16)
[2022-07-15 04:24] LABS: Basophils % (A) 0 %; Eosinophils # (A) 0.2 k/uL (0-0.7); Eosinophils % (A) 2 %; HCT 39.3 % (34.0-46.0); HGB 13.5 gm/dL (11.4-16.0); Lymphocytes # (A) 0.9 k/uL (1.0-4.8); Lymphocytes % (A) 6 %; MCH 32.5 pg (25.0-35.0); MCHC 34.4 g/dL (31.0-37.0); MCV 94.6 fL (80.0-100.0); Mean Platelet Volume 7.4; Monocytes # (A) 0.4 k/uL (0-1.0); Monocytes % (A) 3 %; Neutrophils # (A) 11.9 k/uL (1.3-7.7); Neutrophils % (A) 88 %; Platelet Count 208 k/uL (150-450); RBC 4.16 m/uL (3.80-5.40); RDW 12.1 % (11.5-15.5); WBC 13.5 k/uL (3.8-10.6)
[2022-07-15] MEDS ORDERED: ONDANSETRON 4 MG/2 ML VIAL IVP STA (04:29)
[2022-07-15 04:34] LABS: ALT 18 U/L (4-34); AST 24 U/L (14-36); African American GFR (CKD) >90 (>60 ml/min/1.73 sqM); Albumin 3.8 g/dL (3.5-5.0); Alkaline Phosphatase 39 U/L (38-126); Anion Gap 5 mmol/L; Blood Urea Nitrogen 18 mg/dL (7-17); Calcium 8.2 mg/dL (8.4-10.2); Carbon Dioxide 23 mmol/L (22-30); Chloride 110 mmol/L (98-107); Glucose 117 mg/dL (74-99); Non-African American GFR(CKD) >90 (>60 ml/min/1.73 sqM); Sodium 138 mmol/L (137-145); Total Bilirubin 0.4 mg/dL (0.2-1.3); Total Protein 6.3 g/dL (6.3-8.2)
[2022-07-15] MEDS ORDERED: LORazepam 2 MG/ML INJ IV STA (04:41)
--- NOTE | 2022-07-15 04:41 | CT ---
EXAMINATION TYPE: CT brain wo con DATE OF EXAM: 07/15/2022 COMPARISON: 04/06/2018 HISTORY: SEIZURE, FALL, HIT RIGHT EYE CT DLP: 1129.6 mGycm Automated exposure control for dose reduction was used. Images obtained of the brain with no contrast. Ventricles have normal size. There is no mass effect or midline shift. No sign of intracranial hemorr malathi. Calvarium is intact. There is normal aeration of the mastoid sinuses. Skull base is intact. IMPRESSION: Normal unenhanced head CT scan. No change.
[2022-07-15] MEDS ORDERED: ONDANSETRON 4 MG/2 ML VIAL IVP PRN (05:41)
[2022-07-15] MEDS ORDERED: NALOXONE 0.4 MG/ML 1 ML VIAL IV PRN (05:41)
[2022-07-15] MEDS ORDERED: ACETAMINOPHEN TAB 325 MG TAB PO PRN (05:41)
[2022-07-15] MEDS ORDERED: LORazepam 2 MG/ML INJ IV PRN (05:46)
--- NOTE | 2022-07-15 06:00 | ED ---
Seizure HPI - General Chief Complaint: Seizure Stated Complaint: Seizure, Vomiting Time Seen by Provider: 07/15/22 03:57 Source: patient Mode of arrival: EMS Limitations: no limitations - History of Present Illness Initial Comments: This patient is a 41-year-old woman brought by ambulance to have evaluation after she reportedly had seizure night. Per their report, the patient was in bed and then her noticed that she had probably about 30 seconds of generalized tonic-clonic activity. This was followed by the patient falling from bed and reportedly struck her right brow. The patient also had an episode of vomiting at home. When I interview the patient, she is alert but does not recall the episode at home. She does note that it feels like she had struck her right brow, but she states the pain is severe. She does have some mild epig astric discomfort and nausea. Patient relates that had similar episode of seizures which was Possibly related to episode of cholecystitis. She did have seizures approximately 2 years ago. The patient is not currently seeing a neurologist. She does not take any anticonvulsant medicines and had not done so in the past. MD Complaint: seizure -: minutes(s) Description of Episode: tonic-clonic movement Duration of Episode: 30 -: second(s) Witnessed: yes - by bystander Trauma: Yes Seizure History: other Place: home Possible Precipitating Event: none Associated Symptoms: other (Vomiting) Treatments Prior to Arrival: none - Related Data Home Medications Medication Instructions Recorded Confirmed Acetaminophen Tab [Tylenol] 650 mg PO Q6H PRN 07/15/22 07/15/22 Previous Rx's Medication Instructions Recorded Famotidine [Pepcid] 20 mg PO BID #60 tab 07/16/22 levETIRAcetam [Keppra] 500 mg PO Q12HR #60 tab 07/16/22 Allergies Allergy/AdvReac Type Severity Reaction Status Date / Time No Known Allergies Allergy Verified 07/15/22 10:43 Review of Systems ROS Statement: Those systems with pertinent positive or pertinent negative responses have been documented in the HPI. ROS Other: All systems not noted in ROS Statement are negative. Constitutional: Denies: fever, weakness Eyes: Denies: eye pain, vision change ENT: Denies: ear pain, hearing loss Respiratory: Denies: cough, dyspnea Cardiovascular: Denies: chest pain, palpitations, syncope Gastrointestinal: Reports: as per HPI, abdominal pain, vomiting. Denies: diarrhea Genitourinary: Denies: dysuria, hematuria Musculoskeletal: Denies: back pain Skin: Denies: rash Neurological: Reports: as per HPI, headache. Denies: weakness, numbness, paresthesias, confusion Past Medical History Past Medical History: Cancer Additional Past Medical History / Comment(s): breast ca in past with bilateral mastectomy 02/2013 History of Any Multi-Drug Resistant Organisms: None Reported Past Surgical History: Breast Surgery Additional Past Surgical History / Comment(s): penny mastectomy with reconstruction 02/2013; scar revisions 03/2013; D&C approx 09/2008 or 2009; Past Anesthesia/Blood Transfusion Reactions: No Reported Reaction Past Psychological History: No Psychological Hx Reported Smoking Status: Current every day smoker, Light tobacco smoker Past Alcohol Use History: Rare Past Drug Use History: None Reported - Past Family History Father Family Medical History: Coronary Artery Disease (CAD), Hypertension General Exam Limitations: no limitations General appearance: alert, in no apparent distress Head exam: Present: atraumatic, normocephalic Eye exam: Present: normal appearance, PERRL, EOMI, periorbital swelling (There is a small right brow contusion.). Absent: scleral icterus, conjunctival injection ENT exam: Present: normal oropharynx Neck exam: Present: normal inspection, full ROM. Absent: tenderness Respiratory exam: Present: normal lung sounds bilaterally. Absent: respiratory distress, wheezes, rales, rhonchi, stridor Cardiovascular Exam: Present: regular rate, normal rhythm, normal heart sounds. Absent: systolic murmur, diastolic murmur, rubs, gallop GI/Abdominal exam: Present: soft. Absent: distended, tenderness, guarding, laureen ound, rigid, mass Extremities exam: Present: normal inspection, normal capillary refill. Absent: pedal edema, calf tenderness Back exam: Present: normal inspection. Absent: CVA tenderness (R), CVA tenderness (L), vertebral tenderness Neurological exam: Present: alert, oriented X3, CN II-XII intact. Absent: motor sensory deficit Skin exam: Present: warm, dry, intact, normal color. Absent: rash Course Vital Signs 07/15/22 07/15/22 03:58 04:56 Temperature 97.9 F Pulse Rate 76 81 Respiratory 16 16 Rate Blood Pressure 103/65 103/65 O2 Sat by Pulse 100 98 Oximetry Medical Decision Making - Medical Decision Making The patient's is a 41-year-old woman here for sounds like generalized tonic- clonic seizure tonight. Following the computed tomography scan she did have another seizure, which lasted seconds and was terminated spontaneously. She was given Ativan shortly thereafter. Given that she has had multiple seizures, will admit to have neurology consultation. Following the second seizure, the patient is arousable and then was conversing though a little disoriented. The patient had computed tomography scan of the head which I interpreted as not showing any bony trauma. No intracranial hemorrhage. Patient will be admitted for neurology consultation, she has returned to baseline at admission. Was pt. sent in by a medical professional or institution? @ -No Did you speak to anyone other than the patient for history? @ - Did you review nursing and triage notes? @ -[agree Were old charts reviewed? @ -[No Differential Diagnosis? @ - Differential diagnosis for seizure includes but not limited to: Underlying seizure disorder, acute head trauma, electrolyte abnormality, infectious encephalitis/meningitis, neurodegenerative disorders EKG interpreted by me (3pts min.)? @ -[None X-rays interpreted by me (1pt min.)? @ -None CT interpreted by me (1pt min.)? @ -See chart U/S interpreted by me (1pt. min.)? @ -[none] What testing was considered but not performed? (CT, X-rays, U/S, labs)? Why? @ [Lumbar puncture had been considered but the patient became appropriate and denying headache/other neurologic symptoms What meds were considered but not given? Why? @ -[none] Did you discuss the management of the patient with other professionals? @ -[Admitting physician Did you reconcile home meds? @ -[no Was smoking cessation discussed for >3mins.? @ -[none] Was critical care preformed (if so, how long)? @ -[No Were there social determinants of health that impacted care today? How? (Homelessness, low income, unemployed, alcoholism, drug addiction, transp ortation, low edu. Level, literacy, decrease access to med. care, senior living, rehab)? @ -[No Was there de-escalation of care discussed even if they declined? (Discuss DNR or withdrawal of care, Hospice)? @ -[No What co-morbidities impacted this encounter? (DM, HTN, Smoking, COPD, CAD, Cancer, CVA, Hep., AIDS, mental health diagnosis, sleep apnea, morbid obesity)? @ -[None Was patient admitted / discharged? @ -[Admitted Undiagnosed new problem with uncertain prognosis? @ -[none] Drug Therapy requiring intensive monitoring for toxicity (Heparin, Nitro, Insulin, Cardizem)? @ -[none] Were any procedures done? @ -[none] Diagnosis/symptom? @ -[1. Multiple seizures 2. Low mechanism of injury head trauma Acute, or Chronic, or Acute on Chronic? @ -[Acute Uncomplicated (without systemic symptoms) or Complicated (systemic symptoms)? @ -[uncomplicated Side effects of treatment? @ -[none] Exacerbation, Progression, or Severe Exacerbation] @ -[no] Poses a threat to life or bodily function? @ -[no - Lab Data Result diagrams: 07/15/22 04:16 07/15/22 04:16 Lab Results 07/15/22 07/15/22 07/15/22 Range/Units 03:57 04:16 04:16 WBC 13.5 H (3.8-10.6) k/uL RBC 4.16 (3.80-5.40) m/uL Hgb 13.5 (11.4-16.0) gm/dL Hct 39.3 (34.0-46.0) % MCV 94.6 (80.0-100.0) fL MCH 32.5 (25.0-35.0) pg MCHC 34.4 (31.0-37.0) g/dL RDW 12.1 (11.5-15.5) % Plt Count 208 (150-450) k/uL MPV 7.4 Neutrophils % 88 % Lymphocytes % 6 % Monocytes % 3 % Eosinophils % 2 % Basophils % 0 % Neutrophils # 11.9 H (1.3-7.7) k/uL Lymphocytes # 0.9 L (1.0-4.8) k/uL Monocytes # 0.4 (0-1.0) k/uL Eosinophils # 0.2 (0-0.7) k/uL Basophils # 0.0 (0-0.2) k/uL Sodium 138 (137-145) mmol/L Potassium 4.0 (3.5-5.1) mmol/L Chloride 110 H (98-107) mmol/L Carbon Dioxide 23 (22-30) mmol/L Anion Gap 5 mmol/L BUN 18 H (7-17) mg/dL Creatinine 0.59 (0.52-1.04) mg/dL Est GFR (CKD-EPI)AfAm >90 (>60 ml/min/1.73 sqM) Est GFR (CKD-EPI)NonAf >90 (>60 ml/min/1.73 sqM) Glucose 117 H (74-99) mg/dL POC Glucose (mg/dL) 122 H (70-110) mg/dL POC Glu [employer] Antia Vizcarra Calcium 8.2 L (8.4-10.2) mg/dL Magnesium (1.6-2.3) mg/dL Total Bilirubin 0.4 (0.2-1.3) mg/dL AST 24 (14-36) U/L ALT 18 (4-34) U/L Alkaline Phosphatase 39 (38-126) U/L Total Protein 6.3 (6.3-8.2) g/dL Albumin 3.8 (3.5-5.0) g/dL 07/15/22 Range/Units 04:16 WBC (3.8-10.6) k/uL RBC (3.80-5.40) m/uL Hgb (11.4-16.0) gm/dL Hct (34.0-46.0) % MCV (80.0-100.0) fL MCH (25.0-35.0) pg MCHC (31.0-37.0) g/dL RDW (11.5-15.5) % Plt Count (150-450) k/uL MPV Neutrophils % % Lymphocytes % % Monocytes % % Eosinophils % % Basophils % % Neutrophils # (1.3-7.7) k/uL Lymphocytes # (1.0-4.8) k/uL Monocytes # (0-1.0) k/uL Eosinophils # (0-0.7) k/uL Basophils # (0-0.2) k/uL Sodium (137-145) mmol/L Potassium (3.5-5.1) mmol/L Chloride (98-107) mmol/L Carbon Dioxide (22-30) mmol/L Anion Gap mmol/L BUN (7-17) mg/dL Creatinine (0.52-1.04) mg/dL Est GFR (CKD-EPI)AfAm (>60 ml/min/1.73 sqM) Est GFR (CKD-EPI)NonAf (>60 ml/min/1.73 sqM) Glucose (74-99) mg/dL POC Glucose (mg/dL) (70-110) mg/dL POC Glu [employer] ID Calcium (8.4-10.2) mg/dL Magnesium 1.8 (1.6-2.3) mg/dL Total Bilirubin (0.2-1.3) mg/dL AST (14-36) U/L ALT (4-34) U/L Alkaline Phosphatase (38-126) U/L Total Protein (6.3-8.2) g/dL Albumin (3.5-5.0) g/dL - EKG Data -: EKG Interpreted by Me EKG shows normal: sinus rhythm, axis (Normal), intervals (Normal), QRS complexes (Normal), ST-T waves (Normal) Rate: normal (Rate 65 bpm) Interpretation: normal EKG Disposition Clinical Impression: Generalized seizure Disposition: [facility] Is patient prescribed a controlled substance at d/c from ED?: No
[2022-07-15] MEDS: SODIUM CHLORIDE 0.9% 1,000 ML IV SCH ×2 (06:10→21:06)
[2022-07-15] MEDS: FAMOTIDINE 20 MG TAB PO SCH ×2 (08:12→21:06)
[2022-07-15] MEDS ORDERED: levETIRAcetam IV 1,500 MG in SALINE 1 100ML.BAG IVPB STA (12:46)
--- NOTE | 2022-07-15 13:04 | P.CNNES ---
History of Present Illness Consult date: 07/15/22 Requesting physician: Ishan Oates Reason for Consult: recurrent seizure History of Present Illness: This is a 5-year-old woman with history of breast cancer at the age of 31 status post prophylactic bilateral mastectomy, 2 seizure-like episode in the past who presented emergency department because a seizure-like episode. History is obtained from the patient's was at bedside. It seems that the patient woke up from bed around 2ish arm and he stated that the patient had arm stiffness and she was grabbing on the bed blanket that it seems that the patient had the head turning and he thinks it was a fixed head turning to the left with a subtle jerking of all extremities that he recalls. He felt that episode lasted for 30 seconds to minutes and she had urinary incontinence but denies any foaming around the mouth. He said that she was up post ictal confused for at least more than an hour. As a result of procedure she fell and struck her head on the right side and it was around the right side of the face I region and had an episode of vomiting at home. She is not on any antiepileptic drug. Per the ED the patient had the a brief seizure-like episode lasted seconds after the CT of the scan and that was terminated spontaneously. She was given Ativan 2 mg once. According to the the patient has history of breast cancer about 10 years ago and she had prophylactic the bilateral second. She had the a seizure-like episode a couple years it back and there are not sure the cause. Then she had another seizure-like episode a year ago again unknown, cause. One of the episode was felt possibly GI issue. She did have according to the an EEG and imaging of the brain and he thinks was as CT of the head in the past and was unremarkable. He stated that he thinks she followed up with a neurologist as an outpatient and was not placed on antiepileptic drug. Some other workup during his hospital visit consisted of: She's afebrile White blood cells 13.5 and slightly neutrophilic Initial POC glucose is 122 calcium is 8.2 magnesium is 1.8 sodium is 138. AST and ALT is within normal limits CT of the head is reported as normal on has had computed tomography scan. No change. Review of Systems Review of system: The 12 point system was reviewed and apparent positive and negative per HPI. Past Medical History Past Medical History: Cancer Additional Past Medical History / Comment(s): breast ca in past with bilateral mastectomy 02/2013 History of Any Multi-Drug Resistant Organisms: None Reported Past Surgical History: Breast Surgery Additional Past Surgical History / Comment(s): penny mastectomy with reconstruction 02/2013; scar revisions 03/2013; D&C approx 09/2008 or 2009; Past Anesthesia/Blood Transfusion Reactions: No Reported Reaction Past Psychological History: No Psychological Hx Reported Smoking Status: Current every day smoker, Light tobacco smoker Past Alcohol Use History: Rare Past Drug Use History: None Reported - Past Family History Father Family Medical History: Coronary Artery Disease (CAD), Hypertension Medications and Allergies Home Medications Medication Instructions Recorded Confirmed Type Acetaminophen Tab [Tylenol] 650 mg PO Q6H PRN 07/15/22 07/15/22 History Allergies Allergy/AdvReac Type Severity Reaction Status Date / Time No Known Allergies Allergy Verified 07/15/22 10:43 Physical Examination - Vital Signs Vital Signs: Vital Signs Temp Pulse Pulse Resp BP BP Pulse Ox 07/15/22 07:22 98.7 F 56 L 14 98/62 96 07/15/22 04:56 81 16 103/65 98 07/15/22 03:58 97.9 F 76 16 103/65 100 Intake and Output 07/14/22 07/15/22 07/15/22 22:59 06:59 14:59 Other: Weight 61.235 kg GENERAL: The patient is lying in bed and is not in acute distress. HENT: Bruise over the right lower frontal and lateral periorbital. CHEST: The heart rate is regular rate rhythm. No murmurs to auscultation. LUNG: Clear to auscultation bilaterally no wheezing noted throughout. Not labored breathing. ABDOMEN/GI: Bowel sounds present in all 4 quadrants. No tenderness to palpation throughout. NEUROLOGICAL: Higher mental function: The patient is sleepy upon examinaning her. She is awakeable to voice. Alert, oriented to self, place and time. Patient is following commands. No aphasia and no neglect. Cranial nerves: The pupils are round, equal and reactive to light and accommodation. Visual bhakta are full to confrontation throughout. Extraocular movement is intact no nystagmus is noted. Facial sensation is normal to touch throughout. The facial strength is normal throughout. Hearing is normal bilaterally to hand rub. Tongue is midline and moved [id number] without any difficulty. No tongue bite. No dysarthria is noted. Shoulder shrug is normal bilaterally. Motor: The strength is 5 over 5 throughout. Normal tone and bulk. Cerebellum: Normal finger to nose heel to chin bilaterally. Sensation: Sensation is normal to touch throughout. Reflexes (right/left): 2+ throughout. Plantars are mute bilaterally. Results - Laboratory Findings CBC and BMP: 07/15/22 04:16 07/15/22 04:16 Abnormal Lab Findings: Abnormal Labs 07/15/22 07/15/22 07/15/22 03:57 04:16 04:16 WBC 13.5 H Neutrophils # 11.9 H Lymphocytes # 0.9 L Chloride 110 H BUN 18 H Glucose 117 H POC Glucose (mg/dL) 122 H Calcium 8.2 L Assessment and Plan Assessment: Breakthrough seizure and the patient had 2 seizure-like episode one at home and the other that's brief in the ED. She has history of breast cancer. Rule out brain mets or paraneosplastic process History of seizure (had a seizure-like a couple years ago and a years ago) and was not placed on antiepileptic drugs. History of breast cancer s/p bilateral mastectomy 2012 Tobacco use Plan: I placed the patient on Keppra 500 mg every 12 hours with a loading dose of 5000 wants especially that she has multiple seizure-like episodes. I ordered MRI of the brain with and without urgently to rule out any brain metastases especially with a history of breast cancer. She does have brain metastases recommend consulting oncology and needs to be evaluated by neurosurg chepe. EEG is ordered by the ED team is pending On seizure precaution and seizure pads On Ativan when necessary for seizures ordered by the ED team Because of her seizure patient and her were notified, the patient cannot drive for 6 month until seizure free, avoid heights, avoid using heavy ma chinery or swim unassisted. We'll defer the rest of the medical management to primary team. The plan was discussed with the patient, her was at bedside and that her nurse. Thank you for the consultation Dr. Fried will start neurologist for tomorrow a.m. Time with Patient: Greater than 30
[2022-07-15] MEDS: levETIRAcetam 500 MG TAB PO SCH (21:06)
--- NOTE | 2022-07-15 21:13 | P.HPIM ---
History of Present Illness H&P Date: 07/15/22 Chief Complaint: Seizure This is a pleasant 41-year-old patient, history is mainly obtained with her at the bedside. Patient rather sleepy. Patient described to have at least 2 seizures about a year apart in the past. Precipitating this admission, patient's had 2 episodes of tonic-clonic seizures. Including one at home. Patient did fall out of bed and hit her brow. No prior history of head injury. Patient has not been taking any antiepileptic drugs in the past. Patient started on Keppra by neurology. Denies any use of recreational drugs. No alcohol. Review of systems: GEN.: Sleepy EYES: None HEENT: None NECK: None RESPIRATORY: None CARDIOVASCULAR: None GASTROINTESTINAL: None GENITOURINARY: None MUSCULOSKELETAL: None LYMPHATICS: None HEMATOLOGICAL: None PSYCHIATRY: None NEUROLOGICAL: As above Past medical history to include: Breast cancer with bilateral mastectomy 2012 Social history: . Teacher for second grade. Smokes about half a pack a day. Alcohol rarely. Physical examination: VITAL SIGNS: 97.9, 76, 16, 103/65, 100% room air GENERAL: BMI 20.5, living with sleepy but arousable. EYES: Pupils equal. Conjunctiva normal. HEENT: External appearance of nose and ears normal, oral cavity grossly normal. NECK: JVD not raised; masses not palpable. HEART: First and second heart sounds are normal; no edema. LUNGS: Respiratory rate normal; mild wheezing. ABDOMEN: Soft, nontender, liver spleen not palpable, no masses palpable. PSYCH: Sleepyl. MUSCULOSKELETAL:No Clubbing/cyanosis;muscles-grossly intact NEUROLOGICAL: Cranial nerves grossly intact; no facial asymmetry, power and sensation grossly intact. LYMPHATICS: No lymph nodes palpable in the axilla and neck INVESTIGATIONS, reviewed in the clinical context: White count 13.5 hemoglobin 13.5 platelets 208 potassium 4 BUN 18 creatinine 0.59 EKG tracing personally reviewed by me-normal sinus rhythm Computed tomography scan brain without contrast: Unremarkable Assessment and plan: -Recurrent generalized tonic-clonic seizures. Patient's had at least 2 seizures in the past. On this presentation patient's had 2 further episodes. No history of head injury. No prior antiepileptic drug has been taken. Denies use of any recreational drugs. EEG. MRI of the brain. Neurology consulted. Started on Keppra. -Chronic nicotine dependence cigarette smoking Nicotine patch Seizure precaution. Keppra. Nicotine patch. MRI. EEG. Care was discussed with the at the bedside. Questions answered. Past Medical History Past Medical History: Cancer Additional Past Medical History / Comment(s): breast ca in past with bilateral mastectomy 02/2013 History of Any Multi-Drug Resistant Organisms: None Reported Past Surgical History: Breast Surgery Additional Past Surgical History / Comment(s): penny mastectomy with reconstruction 02/2013; scar revisions 03/2013; D&C approx 09/2008 or 2009; Past Anesthesia/Blood Transfusion Reactions: No Reported Reaction Past Psychological History: No Psychological Hx Reported Smoking Status: Current every day smoker, Light tobacco smoker Past Alcohol Use History: Rare Past Drug Use History: None Reported - Past Family History Father Family Medical History: Coronary Artery Disease (CAD), Hypertension Medications and Allergies Home Medications Medication Instructions Recorded Confirmed Type Acetaminophen Tab [Tylenol] 650 mg PO Q6H PRN 07/15/22 07/15/22 History Allergies Allergy/AdvReac Type Severity Reaction Status Date / Time No Known Allergies Allergy Verified 07/15/22 10:43 Physical Exam Vitals: Vital Signs Temp Pulse Pulse Resp BP BP Pulse Ox 07/15/22 07:22 98.7 F 56 L 14 98/62 96 07/15/22 04:56 81 16 103/65 98 07/15/22 03:58 97.9 F 76 16 103/65 100 Intake and Output 07/14/22 07/15/22 07/15/22 22:59 06:59 14:59 Other: Weight 61.235 kg Results CBC & Chem 7: 07/15/22 04:16 07/15/22 04:16 Labs: Abnormal Lab Results - Last 24 Hours (Table) 07/15/22 07/15/22 07/15/22 Range/Units 03:57 04:16 04:16 WBC 13.5 H (3.8-10.6) k/uL Neutrophils # 11.9 H (1.3-7.7) k/uL Lymphocytes # 0.9 L (1.0-4.8) k/uL Chloride 110 H (98-107) mmol/L BUN 18 H (7-17) mg/dL Glucose 117 H (74-99) mg/dL POC Glucose (mg/dL) 122 H (70-110) mg/dL Calcium 8.2 L (8.4-10.2) mg/dL Thrombosis Risk Factor Assmnt - Choose All That Apply Any of the Below Risk Factors Present?: No Other Risk Factors: No Other congenital or acquired thrombophilia - If yes, enter type in comment: No Thrombosis Risk Factor Assessment Level: Very Low Risk
[2022-07-16 07:24] VITALS: RESP 16
[2022-07-16] MEDS: levETIRAcetam 500 MG TAB PO SCH (08:08)
[2022-07-16] MEDS: FAMOTIDINE 20 MG TAB PO SCH (08:08)
[2022-07-16] MEDS: SODIUM CHLORIDE 0.9% 1,000 ML IV SCH (08:08)
--- NOTE | 2022-07-16 12:18 | EEG ---
ELECTROENCEPHALOGRAM REPORT PREAMBLE: This is a 41-year-old female with recurrent seizure. CURRENT MEDICATIONS: 1. Keppra. 2. Ativan. 3. Zofran. EEG FINDINGS: This is a 21-channel digital EEG recorded with video component, utilizing 10/20 international system with referential and bipolar montages. Background consists of well-developed, well regulated, mixed frequencies of 7 to 8 hertz alpha and theta activity seen in bihemispheric region. Background is posterior dominant and is reactive to eye opening and closing. Photic driving response was not seen. Some drowsiness was seen with appearance of bilaterally symmetric theta frequency rhythm. Deeper stages of sleep were not seen. No definitive focal or generalized epileptiform activity was seen. IMPRESSION: This is a normal awake and drowsy EEG. No focal, lateralized, or epileptiform activity was seen. MMODL / IJN: [id number] /
[2022-07-16 14:16] VITALS: BP 102/68; PULSE 59; TEMP 98.5
--- NOTE | 2022-07-16 17:36 | MR ---
EXAMINATION TYPE: MR brain wo/w con DATE OF EXAM: 07/16/2022 5:22 PM CLINICAL INDICATION:Female, 41 years old with history of seizure. Hx of breast cancer; COMPARISON: CT brain 07/15/2022 TECHNIQUE: Multi planar, multi sequence imaging was performed through the brain including: T1, T2, In version recovery, susceptibility weighted imaging and gradient echo imaging and Diffusion weighted im aging. The patient was then given intravenous contrast and multi planar, T1 fat-saturation images wer e obtained. IV Contrast: 6 cc Gadavist FINDINGS: The collazo-white junctions, ventricular system, basal cisterns appear unremarkable. Diffusion-weighted imaging shows no evidence of restricted diffusion to suggest acute/subacute infarct. Intracranial art erial flow voids are maintained. Midline structures show no abnormality. The susceptibility weighted images scattered foci of blooming artifact within the right temporal lobe and right frontal lobe. Aft er administration of gadolinium, no abnormal enhancement is seen. The bone marrow signal is within normal limits. Paranasal sinuses and mastoid air cells: Mild scattered paranasal sinus disease. Visualized orbits: Orbital contents are intact. IMPRESSION: 1. No evidence of intracranial mass, acute/subacute infarct, or abnormal enhancement. 2. Scattered blooming artifact within the right temporal and right frontal lobe consistent with micro hemorrhage.
--- NOTE | 2022-07-16 19:02 | P.DS ---
Providers Date of admission: 07/15/22 05:44 Expected date of discharge: 07/16/22 Attending physician: Toby Gonsalves Consults: 07/15/22 05:41 Consult Physician Routine Consulting Provider: Naman Nichols Consult Reason/Comments: recurrent seizures Do you want consulting provider notified?: Yes Primary care physician: Stated None Hospital Course: Chief Complaint: Seizure This is a pleasant 41-year-old patient, history is mainly obtained with her at the bedside. Patient rather sleepy. Patient described to have at least 2 seizures about a year apart in the past. Precipitating this admission, patient's had 2 episodes of tonic-clonic seizures. Including one at home. Patient did fall out of bed and hit her brow. No prior history of head injury. Patient has not been taking any antiepileptic drugs in the past. Patient started on Keppra by neurology. Denies any use of recreational drugs. No alcohol. July 16: Awake today. Had a lengthy discussion with the patient and her mother at the bedside. Several questions answered. Reasoning for Keppra to be continued was discussed. Advise about no driving etc. given. Later communica ander with neurology Dr. Mcduffie. Patient will follow-up with Dr. Tovar from neurology. MRI EEG unremarkable. Discussion and discharge planning more than 35 minutes Past medical history to include: Breast cancer with bilateral mastectomy 2012 Social history: . Teacher for second grade. Smokes about half a pack a day. Alcohol rarely. Physical examination: VITAL SIGNS: 98.4, 59, 16, 1 or 2 x 68, 100% room air GENERAL: Comfortable EYES: Pupils equal. Conjunctiva normal. HEENT: External appearance of nose and ears normal, oral cavity grossly normal. NECK: JVD not raised; masses not palpable. HEART: First and second heart sounds are normal; no edema. LUNGS: Respiratory rate normal; mild wheezing. ABDOMEN: Soft, nontender, liver spleen not palpable, no masses palpable. PSYCH: AO 3, mood affect normal MUSCULOSKELETAL:No Clubbing/cyanosis;muscles-grossly intact INVESTIGATIONS, reviewed in the clinical context: EEG: Negative for epileptic activity MRI brain: Unremarkable White count 13.5 hemoglobin 13.5 platelets 208 potassium 4 BUN 18 creatinine 0.59 EKG tracing personally reviewed by me-normal sinus rhythm Computed tomography scan brain without contrast: Unremarkable Assessment and plan: -Recurrent generalized tonic-clonic seizures. Patient's had at least 2 seizures in the past. On this presentation patient's had 2 further episodes. No history of head injury. No prior antiepileptic drug has been taken. Denies use of any recreational drugs. EEG. And MRI of the brain. Unremarkable. Keppra 5 mg twice a day. Follow up with Dr. Nichols with neurology outpatient -Chronic nicotine dependence cigarette smoking Nicotine patch Disposition: Home Plan - Discharge Summary Discharge Rx Participant: No New Discharge Prescriptions: New levETIRAcetam [Keppra] 500 mg PO Q12HR #60 tab Famotidine [Pepcid] 20 mg PO BID #60 tab Continue Acetaminophen Tab [Tylenol] 650 mg PO Q6H PRN PRN Reason: Fever And/ Or Pain Discharge Medication List Acetaminophen Tab [Tylenol] 650 mg PO Q6H PRN 07/15/22 [History] Famotidine [Pepcid] 20 mg PO BID #60 tab 07/16/22 [Rx] levETIRAcetam [Keppra] 500 mg PO Q12HR #60 tab 07/16/22 [Rx] Follow up Appointment(s)/Referral(s): Mathew Rivera NPC [REFERRING] - 1-2 Days Naman Nichols MD [STAFF PHYSICIAN] - 1 Week Patient Instructions/Handouts: Seizure/Epilepsy Discharge Instructions & Follow-Up Activity/Diet/Wound Care/Special Instructions: NO DRIVING FOR 6 MONTHS AND SEIZURE FREE
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
== END 2022-07-16 19:22 | disposition home or self-care (01) | DRG 101 ==
LOC: EC 03:53 → 4SSUR 05:44
PROVIDERS: ADMIT Hospitalist; ATTEND Hospitalist
DX: G40.409 Other generalized epilepsy and epileptic syndromes, not intractable, without status epilepticus (principal); F17.210 Nicotine dependence, cigarettes, uncomplicated; Z28.310 Unvaccinated for COVID-19; R32 Unspecified urinary incontinence; S00.11XA Contusion of right eyelid and periocular area, initial encounter; R11.2 Nausea with vomiting, unspecified; Z79.899 Other long term (current) drug therapy; Z85.3 Personal history of malignant neoplasm of breast; Z95.5 Presence of coronary angioplasty implant and graft; W06.XXXA Fall from bed, initial encounter; Y92.003 Bedroom of unspecified non-institutional (private) residence as the place of occurrence of the external cause
CPT/HCPCS: 36415; 70450; 70553; 80053; 83735; 85025; 93005; 94760; 95816; 96361; 96374; 96375; 99285

== ENCOUNTER → 2023-06-13 | Outpatient (CLI) | payer BC | END | disposition home or self-care (01) | LOC: LABWHC1 10:23 | PROVIDERS: ATTEND Internal Medicine Hematology & Oncology | DX: C50.919 Malignant neoplasm of unspecified site of unspecified female breast (principal); E80.21 Acute intermittent (hepatic) porphyria ==

== ENCOUNTER → 2024-06-05 | Outpatient (CLI) | payer BC ==
[2024-06-05 14:36] VITALS: BP 116/63; PULSE 103; RESP 16; TEMP 98.1
--- NOTE | 2024-06-05 14:55 | P.PN ---
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 The size of the ductal carcinoma in situ was over 5 cm and was 0.5 cm from the posterior margin. The left breast was a simple mastectomy with mild fibrocystic changes. [place] node biopsy was also performed which was negative for malignancy. She had bilateral subpectoral expanders placed at the time of surgery by DR. Bearden. She had a scar revision following this and then had the expanders exchanged for the permanent implants in July 2013. She had done well from that time until two years ago when she noted that the right breast implant was feeling heavy and bruised. She denied any trauma to that area. It is not bothering her at this time. She was going to see Dr. Bearden. She was not concerned about any lumps, masses, or nodules in her chest wall. She did not have any chemo, hormonal therapy, radiation. She states her original tumor was ER/MO negative but HER-2 positive. She has not followed with medical or radiation oncology. She has not followed with Dr. Bearden since she has finished her reconstruction. She had genetic testing done and she was negative for BRCA 1. Since her last visit on 12-22-[address] Bearden and did not have any intervention. Today she is compoaining of a lumpy spot on the left chest wall. She noted it about 1 month ago. She is not sure if it has gotten larger. Caffiene: 5 cups coffee/day nicotine: 1 pack last 4 days chocolate: none hormones: Periods are normal; does not use hormones at this time Family history: paternal grandmother: breast cancer maternal grandmother: breast cancer Hormonal History: menarche: 14 , M1, breast fed: no, age at first : 28 periods regular BCP: used them in her 20's, 5 years Surgical history: Bilateral mastectomy with reconstruction D&C Scar revision of the mastectomy sites gallbladder Medical History: lamectal for epilepsy no seizure for about 1-1/2 years Social History: smoke: 19 years 1pack/4day now used to smoke 2 PPD; stopped 3 months ago alcohol: rare drugs: none - Constitutional Constitutional: Denies chills, Denies fever - EENT Eyes: denies blurred vision, denies pain Ears: deny: decreased hearing, tinnitus Ears, nose, mouth and throat: Denies headache, Denies sore throat - Breasts Breasts: bilateral: as per HPI - Cardiovascular Cardiovascular: Denies chest pain, Denies shortness of breath - Respiratory Respiratory: Denies cough - Gastrointestinal Gastrointestinal: Denies abdominal pain, Denies diarrhea, Denies nausea, Denies vomiting - Genitourinary (Female) Genitourinary: Denies dysuria, Denies hematuria - Menstruation Menstruation: Reports period normal - Musculoskeletal Musculoskeletal: Denies myalgias - Integumentary Integumentary: Denies pruritus, Denies rash - Neurological Neurological: Denies numbness, Denies weakness - Psychiatric Psychiatric: Denies anxiety, Denies depression - Endocrine Endocrine: Denies fatigue, Denies weight change - Hematologic/Lymphatic Comment: none - Allergic/Immunologic Allergic/Immunologic: Reports seasonal allergies Objective - Vital Signs Vital signs: Vital Signs Temp 98.1 F 06/05/24 14:33 Pulse 103 H 06/05/24 14:33 Resp 16 06/05/24 14:33 BP 116/63 06/05/24 14:33 Pulse Ox 97 06/05/24 14:33 FiO2 Intake & Output 06/04/24 06/05/24 06/05/24 18:59 06:59 18:59 Weight 61.235 kg - Constitutional General appearance: Present: cooperative - EENT ENT: Present: hearing grossly normal - Neck Neck: Present: normal ROM - Respiratory Respiratory: bilateral: CTA - Cardiovascular Rhythm: regular Heart sounds: normal: S1, S2 - Integumentary Integumentary: Present: normal turgor - Musculoskeletal Musculoskeletal: Present: gait normal - Psychiatric Psychiatric: Present: A&O x's 3, appropriate affect, intact judgment & insight - Additional findings Additional findings: Breast Exam: BRA: medium sports bra inspection: well healed scar bilateral palpation: right chest wall: Chest wall no evidence of recurrent disease Right axilla: No adenopathy of concern Left chest wall: No evidence of recurrent disease; in the inferior aspect of the chest wall/implant is some nodularity which is new for the patient over a rib Left axilla: No adenopathy of concern Assessment and Plan Assessment: Assessment and Plan Assessment: Impression: Patient status post bilateral mastectomy with reconstruction for DCIS right breast Prominent rib left chest wall nodularity left chest wall Plan: ultrasound bilateral chest wall with particular attention to the area of palpable change on the left which is believed to represent some soft tissue over a rib Chest wall MRI Follow tests are done, would like these to be done before the first week in June Follow-up sooner any questions or concerns CC: Dr. Holland
== END ==
LOC: WWCWWP 14:25
PROVIDERS: ATTEND Surgery
DX: D05.11 Intraductal carcinoma in situ of right breast (principal); N63.20 Unspecified lump in the left breast, unspecified quadrant; Z85.3 Personal history of malignant neoplasm of breast; Z80.3 Family history of malignant neoplasm of breast; Z90.13 Acquired absence of bilateral breasts and nipples; F17.210 Nicotine dependence, cigarettes, uncomplicated

== ENCOUNTER → 2024-06-23 | Outpatient (CLI) | payer BC ==
--- NOTE | 2024-06-23 10:39 | MR ---
EXAMINATION TYPE: MR chest wo/w con DATE OF EXAM: 06/23/2024 9:58 AM COMPARISON: None. CLINICAL INDICATION: Female, 43 years old with history of Palpable change L chest wall, Left chest wa ll lump below lt breast, hx of breast ca/mastectomy, silicone implants, TECHNIQUE: Multiplanar, multisequence images of the chest were obtained before and after administrati on of 6.5 mL intravenous Gadobutrol gadolinium contrast. IV Contrast: 6.5 cc Gadobutrol (None if empty) FINDINGS: Bilateral retropectoral breast implants are demonstrated. No abnormal axillary adenopathy or obvious breast masses appreciated. There is an irregular, 1 cm T1 and T2 hypointense area in the subcutaneous adipose layer located just below the left breast implant that demonstrates postcontrast enhancement referred to postcontrast co darinel series 2001 image 8 and postcontrast axial series 1901 image 26. Otherwise, no abnormal enhancement identified along the chest wall or chest wall mass/fluid collectio n is identified. The lungs appear clear by MRI. No pleural effusion. Heart normal size without pericardial effusion. IMPRESSION: 1. Bilateral breast reconstruction with underlying implants. 2. Correlate as to the exact site of palpable abnormality. Inferior to the left breast implant within the subcutaneous adipose layer, there is an irregular 1 cm area of enhancement that shows dark T1 an d T2 signal. Possible focal scarring. Recommend targeted ultrasound to further evaluate and to determ ine the need for follow-up versus further evaluation. [facility], , 06/23/2024 10:37 AM
== END | disposition home or self-care (01) ==
LOC: RADMRIMAIN 08:41
PROVIDERS: ATTEND Surgery
DX: Z90.12 Acquired absence of left breast and nipple (principal); Z85.3 Personal history of malignant neoplasm of breast
CPT/HCPCS: 71552; A9585

== ENCOUNTER → 2024-07-03 | Outpatient (CLI) | payer BC ==
--- NOTE | 2024-07-03 08:44 | USB ---
Reason for Exam: Clinical finding. Patient History: Menarche at age 16. First Full-Term at age 28. Patient used Hormonal Contraceptives for 6 years. Paternal grandmother had breast cancer under age 50. Risk Values: Ceci 5 year model risk: 0.7%. NCI Lifetime model risk: 10.0%. Technique: Method: Whole Breast Handheld. Prior Study Comparison: 01/16/2013 Bilateral Diagnostic Mammogram, [facility]. Findings: The whole breast of both breasts and the axilla of both breasts were scanned. Technique utilized:US breast complete BILAT Image; Ultrasound imaging of: Area of concern, retroareolar region and axilla. Some slightly heterogenous tissue in area of what is thought to be the palpable abnormality and finding on MRI. On ultrasound this area is somewhat heterogenous and difficult to discern from other areas of tissue there is a thin 1.5 cm area of hypoechogenic tissue which touches the morphology of the MRI finding at 7:00. Overall Assessment: Probably benign, BI-RAD 3 Management: Diagnostic Breast Ultrasound of the left breast in 6 months. A clinical breast exam by your physician is recommended on an annual basis and results should be correlated with mammographic findings. This exam should not preclude additional follow-up of suspicious palpable abnormalities. Results were given to the patient verbally at the time of exam. [facility], , 07/03/2024 8:41 AM. Electronically signed and approved by: Adrien Sheriff DO
== END | disposition home or self-care (01) ==
LOC: RADUSWWP 07:47
PROVIDERS: ATTEND Surgery
DX: N63.10 Unspecified lump in the right breast, unspecified quadrant (principal); Z85.3 Personal history of malignant neoplasm of breast; Z80.3 Family history of malignant neoplasm of breast

== ENCOUNTER → 2024-07-03 | Outpatient (CLI) | payer BC ==
[2024-07-03 11:44] VITALS: BP 117/74; PULSE 84; RESP 17; TEMP 98
--- NOTE | 2024-07-03 12:07 | P.PN ---
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 The size of the ductal carcinoma in situ was over 5 cm and was 0.5 cm from the posterior margin. The left breast was a simple mastectomy with mild fibrocystic changes. [place] node biopsy was also performed which was negative for malignancy. She had bilateral subpectoral expanders placed at the time of surgery by DR. Bearden. She had a scar revision following this and then had the expanders exchanged for the permanent implants in July 2013. She had done well from that time until two years ago when she noted that the right breast implant was feeling heavy and bruised. She denied any trauma to that area. It is not bothering her at this time. She was going to see Dr. Bearden. She was not concerned about any lumps, masses, or nodules in her chest wall. She did not have any chemo, hormonal therapy, radiation. She states her original tumor was ER/AK negative but HER-2 positive. She has not followed with medical or radiation oncology. She has not followed with Dr. Bearden since she has finished her reconstruction. She had genetic testing done and she was negative for BRCA 1. Since her last visit on 12-22-[address] Bearden and did not have any intervention. Today she is complaining of a lumpy spot on the left chest wall. She noted it about 2 month ago. She is not sure if it has gotten larger. MRI 06-23-24 bilateral breast reconstruction with implants, inferior to the left implant irregular 1 cm area of enhancement recommend ultraound of the area ultrasound of the area of concern done on 07-03-24 recommend repeat ultrasound in several months to follow Caffiene: 5 cups coffee/day nicotine: 1 pack last 4 days chocolate: none hormones: Periods are normal; does not use hormones at this time Family history: paternal grandmother: breast cancer maternal grandmother: breast cancer Hormonal History: menarche: 14 , M1, breast fed: no, age at first : 28 periods regular BCP: used them in her 20's, 5 years Surgical history: Bilateral mastectomy with reconstruction D&C Scar revision of the mastectomy sites gallbladder Medical History: lamectal for epilepsy no seizure for about 1-1/2 years Social History: smoke: 19 years 1pack/4day now used to smoke 2 PPD; stopped 3 months ago alcohol: rare drugs: none - Constitutional Constitutional: Denies chills, Denies fever - EENT Eyes: denies blurred vision, denies pain Ears: deny: decreased hearing, tinnitus Ears, nose, mouth and throat: Denies headache, Denies sore throat - Breasts Breasts: bilateral: as per HPI - Cardiovascular Cardiovascular: Denies chest pain, Denies shortness of breath - Respiratory Respiratory: Denies cough - Gastrointestinal Gastrointestinal: Denies abdominal pain, Denies diarrhea, Denies nausea, Denies vomiting - Genitourinary (Female) Genitourinary: Denies dysuria, Denies hematuria - Menstruation Menstruation: Reports period normal - Musculoskeletal Musculoskeletal: Denies myalgias - Integumentary Integumentary: Denies pruritus, Denies rash - Neurological Neurological: Denies numbness, Denies weakness - Psychiatric Psychiatric: Denies anxiety, Denies depression - Endocrine Endocrine: Denies fatigue, Denies weight change - Hematologic/Lymphatic Comment: none - Allergic/Immunologic Allergic/Immunologic: Reports seasonal allergies Objective - Vital Signs Vital signs: Vital Signs Temp 98.0 F 07/03/24 11:41 Pulse 84 07/03/24 11:41 Resp 17 07/03/24 11:41 BP 117/74 07/03/24 11:41 Pulse Ox 100 07/03/24 11:41 FiO2 Intake & Output 07/02/24 07/03/24 07/03/24 18:59 06:59 18:59 Weight 63.503 kg - Constitutional General appearance: Present: cooperative - EENT Eyes: Present: EOMI ENT: Present: hearing grossly normal - Neck Neck: Present: normal ROM - Respiratory Respiratory: bilateral: CTA - Cardiovascular Heart sounds: normal: S1, S2 - Integumentary Integumentary: Present: normal turgor - Musculoskeletal Musculoskeletal: Present: gait normal - Psychiatric Psychiatric: Present: A&O x's 3, appropriate affect, intact judgment & insight - Additional findings Additional findings: Breast Exam: BRA: medium sports bra inspection: well healed scar bilateral palpation: right chest wall: Chest wall no evidence of recurrent disease Right axilla: No adenopathy of concern Left chest wall: No evidence of recurrent disease; in the inferior aspect of the chest wall/implant is some nodularity which is new for the patient over a rib it is very hard to feel, and may just be subq tissue Left axilla: No adenopathy of concern Assessment and Plan Assessment: Impression: Patient status post bilateral mastectomy with reconstruction for DCIS right breast Prominent rib left chest wall nodularity left chest wall Chest wall MRI and left chest wall ultrasound performed and reviewed, the plan will be for close surveillance of a questionable subcutaneous change in the left chest wall Plan: Repeat left chest wall ultrasound in 3 months with examination at that time Patient will follow-up sooner any questions or concerns At this time there is nothing specific to biopsy, she understands that if anything changes then a biopsy may be recommended. CC: Dr. Holland Additional CC's: Adrien aG
== END ==
LOC: WWCWWP 10:32
PROVIDERS: ATTEND Surgery
DX: D05.11 Intraductal carcinoma in situ of right breast (principal); R91.1 Solitary pulmonary nodule; F17.210 Nicotine dependence, cigarettes, uncomplicated; Z85.3 Personal history of malignant neoplasm of breast; Z90.13 Acquired absence of bilateral breasts and nipples; Z17.1 Estrogen receptor negative status [ER-]; Z17.22 Progesterone receptor negative status; Z80.3 Family history of malignant neoplasm of breast

== ENCOUNTER → 2024-10-08 | Outpatient (CLI) | payer BC ==
--- NOTE | 2024-10-09 10:13 | USB ---
Reason for Exam: Clinical finding. Patient History: Menarche at age 16. First Full-Term at age 28. Patient used Hormonal Contraceptives for 6 years. Paternal grandmother had breast cancer under age 50. Risk Values: Ceci 5 year model risk: 0.7%. NCI Lifetime model risk: 9.9%. Technique: Method: Targeted. Prior Study Comparison: 01/16/2013 Bilateral Diagnostic Mammogram, [facility]. Findings: The area of palpable concern of the left breast, the axilla of the left breast and the retroareolar of the left breast were scanned. Ultrasound of the area of clinical concern 7:00 region left breast 10 cm from the nipple was performed. The area described previously and on the MRI is poorly characterized. Therefore I believe that MRI correlation is advised. No distinct solid mass appreciated. Breast implant noted to be in place. Multiple ribs are also detected. Overall Assessment: Incomplete: need additional imaging evaluation, BI-RAD 0 Management: Diagnostic Breast MRI of both breasts. A clinical breast exam by your physician is recommended on an annual basis and results should be correlated with mammographic findings. This exam should not preclude additional follow-up of suspicious palpable abnormalities. Results were given to the patient verbally at the time of exam. [facility], , 10/08/2024 2:28 PM. Electronically signed and approved by: Duc Maki M.D. Radiolog[facility]
== END | disposition home or self-care (01) ==
LOC: RADUSWWP 13:45
PROVIDERS: ATTEND Surgery
DX: R92.8 Other abnormal and inconclusive findings on diagnostic imaging of breast (principal); Z80.3 Family history of malignant neoplasm of breast; Z92.0 Personal history of contraception

== ENCOUNTER → 2024-10-15 | Outpatient (CLI) | payer BC ==
[2024-10-15 15:43] VITALS: BP 116/79; PULSE 83; RESP 17; TEMP 98.3
--- NOTE | 2024-10-15 15:49 | P.PN ---
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 The size of the ductal carcinoma in situ was over 5 cm and was 0.5 cm from the posterior margin. The left breast was a simple mastectomy with mild fibrocystic changes. Emmett node biopsy was also performed which was negative for malignancy. She had bilateral subpectoral expanders placed at the time of surgery by DR. Bearden. She had a scar revision following this and then had the expanders exchanged for the permanent implants in July 2013. She had done well from that time until two years ago when she noted that the right breast implant was feeling heavy and bruised. She denied any trauma to that area. It is not bothering her at this time. She was going to see Dr. Bearden. She was not concerned about any lumps, masses, or nodules in her chest wall. She did not have any chemo, hormonal therapy, radiation. She states her original tumor was ER/CO negative but HER-2 positive. She has not followed with medical or radiation oncology. She has not followed with Dr. Bearden since she has finished her reconstruction. She had genetic testing done and she was negative for BRCA 1. Since her last visit on 12-22-[address] Bearden and did not have any intervention. Today she is complaining of a lumpy spot on the left chest wall. She noted it about 2 month ago. She is not sure if it has gotten larger. MRI 06-23-24 bilateral breast reconstruction with implants, inferior to the left implant irregular 1 cm area of enhancement recommend ultraound of the area ultrasound of the area of concern done on 07-03-24 recommend repeat ultrasound in several months to follow; a repeat ultrasound was done on 10-08-24 and personally reviewed and discussed with Dr. Walter. No specific area of concern was noted. He has recommended a repeat MRI from the one in May in 6 months and if the area is stable than follow with a repeat MRI in 1 year. She does not feel anything of concern at this time. It is sore on the left side since April, but no lumps. Caffiene: 5 cups coffee/day nicotine: 1 pack last 4 days chocolate: none hormones: Periods are normal; does not use hormones at this time Family history: paternal grandmother: breast cancer maternal grandmother: breast cancer Hormonal History: menarche: 14 , M1, breast fed: no, age at first : 28 periods regular BCP: used them in her 20's, 5 years Surgical history: Bilateral mastectomy with reconstruction D&C Scar revision of the mastectomy sites gallbladder Medical History: lamectal for epilepsy no seizure for about 1-1/2 years Social History: smoke: 19 years 1pack/4day now used to smoke 2 PPD; stopped 3 months ago alcohol: rare drugs: none - Constitutional Constitutional: Denies chills, Denies fever - EENT Eyes: denies blurred vision, denies pain Ears: deny: decreased hearing, tinnitus Ears, nose, mouth and throat: Denies headache, Denies sore throat - Breasts Breasts: bilateral: as per HPI - Cardiovascular Cardiovascular: Denies chest pain, Denies shortness of breath - Respiratory Respiratory: Denies cough - Gastrointestinal Gastrointestinal: Denies abdominal pain, Denies diarrhea, Denies nausea, Denies vomiting - Genitourinary (Female) Genitourinary: Denies dysuria, Denies hematuria - Menstruation Menstruation: Reports period normal - Musculoskeletal Musculoskeletal: Denies myalgias - Integumentary Integumentary: Denies pruritus, Denies rash - Neurological Neurological: Denies numbness, Denies weakness - Psychiatric Psychiatric: Denies anxiety, Denies depression - Endocrine Endocrine: Denies fatigue, Denies weight change - Hematologic/Lymphatic Comment: none - Allergic/Immunologic Allergic/Immunologic: Reports seasonal allergies Objective - Constitutional General appearance: Present: cooperative - EENT Eyes: Present: EOMI ENT: Present: hearing grossly normal - Neck Neck: Present: normal ROM - Respiratory Respiratory: bilateral: CTA - Cardiovascular Rhythm: regular Heart sounds: normal: S1, S2 - Integumentary Integumentary: Present: normal turgor - Musculoskeletal Musculoskeletal: Present: gait normal - Psychiatric Psychiatric: Present: A&O x's 3, appropriate affect, intact judgment & insight - Additional findings Additional findings: Breast Exam: BRA: medium sports bra inspection: well healed scar bilateral palpation: right chest wall: Chest wall no evidence of recurrent disease Right axilla: No adenopathy of concern Left chest wall: No evidence of recurrent disease; in the inferior aspect of the chest wall/implant on today's examination there is no nodularity of concern Left axilla: No adenopathy of concern Assessment and Plan Assessment: Impression: Patient status post bilateral mastectomy with reconstruction for DCIS right breast Prominent rib left chest wall nodularity left chest wall resolved Chest wall MRI and left chest wall ultrasound performed and reviewed, the plan will be for close surveillance of a questionable subcutaneous change in the left chest wall; repeat ultrasoudn left chest wall lesions of concern this was personally reviewed and discussed with Dr. Jacquie Irwin from radiology Plan: Repeat bilateral breast MRI in 2 months with appointment at that time Patient will follow-up sooner any questions or concerns At this time there is nothing specific to biopsy, she understands that if anything changes then a biopsy may be recommended. CC: Dr. Holland Additional CC's: Adrien Ga
== END ==
LOC: WWCWWP 14:41
PROVIDERS: ATTEND Surgery
DX: D05.11 Intraductal carcinoma in situ of right breast (principal); M95.4 Acquired deformity of chest and rib; F17.200 Nicotine dependence, unspecified, uncomplicated; Z90.11 Acquired absence of right breast and nipple